=== PATIENT | male | born 1945 | race African-American/Black ===

== ENCOUNTER 2020-01-01 00:22 | Emergency (ER) | payer OTHER ==
[~2020-01-01] VITALS: Ht 185.4 cm; Wt 107.5 kg
[2020-01-01 01:09] LABS: HEMATOCRIT 40.6 % (42.0-52.0); HEMOGLOBIN 13.1 gm/dL (14.0-18.0); MCH 33.3 pg (26.0-34.0); MCHC 32.2 g/dL (28.0-37.0); MCV 103.3 fL (80.0-100.0); PLATELET COUNT 172 thou/uL (150-400); RBC 3.93 mil/uL (4.50-6.00); RDW 15.9 % (10.5-14.5); WBC 8.2 thou/uL (4.0-11.0)
[2020-01-01] MEDS ORDERED: PROSCAR 5MG TABL5 M1 PO (01:10)
[2020-01-01] MEDS ORDERED: TORSEMIDE20 MG PO ×2 (01:10→01:17)
[2020-01-01] MEDS ORDERED: ALLOPURINOL 10100 M3 PO (01:11)
[2020-01-01] MEDS ORDERED: B-12500 MCG PO (01:11)
[2020-01-01] MEDS ORDERED: PROTONIX40 M2 PO (01:12)
[2020-01-01] MEDS ORDERED: ASPIRIN PO (01:12)
[2020-01-01] MEDS ORDERED: KLOR-CON M2020 MEQ PO (01:12)
[2020-01-01] MEDS ORDERED: NEURONTIN 300M300 M2 PO (01:13)
[2020-01-01] MEDS ORDERED: TYLENOL PO (01:13)
[2020-01-01] MEDS ORDERED: CARVEDILOL ER20 MG PO (01:14)
[2020-01-01] MEDS ORDERED: RISPERDAL0.5 MG PO (01:14)
[2020-01-01] MEDS ORDERED: LIPITOR40 MG PO (01:15)
[2020-01-01] MEDS ORDERED: NIACIN 500 MG500 M1 PO (01:15)
[2020-01-01 01:16] LABS: ANION GAP 8 mmol/L (7-16); BUN 38 mg/dL (7-18); CALCIUM 8.5 mg/dL (8.5-10.1); CHLORIDE 105 mmol/L (98-107); CO2 26 mmol/L (21-32); CREATININE 1.8 mg/dL (0.7-1.3); GLUCOSE 93 mg/dL (74-106); POTASSIUM 5.9 mmol/L (3.5-5.1); SODIUM 139 mmol/L (136-145)
[2020-01-01] MEDS ORDERED: VITAMIN E1000 UNIT PO (01:16)
[2020-01-01] MEDS ORDERED: ATIVAN0.5 M1 PO (01:17)
[2020-01-01 01:26] LABS: ALBUMIN 3.2 g/dL (3.4-5.0); DIRECT BILIRUBIN 0.1 mg/dL (<0.1-0.2); SGOT 27 U/L (15-37); SGPT 21 U/L (30-65); TOTAL BILIRUBIN 0.3 mg/dL (<0.1-1.0); TOTAL PROTEIN 7.4 g/dL (6.4-8.2); TROPONIN-I <0.06 ng/mL (<0.06)
[2020-01-01 01:38] LABS: ANISOCYTOSIS 1+; MACROCYTES 1+; PLATELET ESTIMATE NORMAL; POIKILOCYTOSIS 1+
[2020-01-01 05:54] VITALS: BP 106/48
--- NOTE | 2020-01-01 08:24 | EKG ---
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: 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 : 1945 Requested By: Tracie Buatista Order Number: [id number] MD: Jesus Law Measurements Intervals [place] Rate: 70 P: 40 MD: 174 QRS: -57 QRSD: 114 T: 83 QT: 437 QTc: 472 Interpretive Statements Sinus rhythm Left atrial enlargement Left anterior fascicular block Poor R wave progression No previous ECG available for comparison Electronically Signed On 01-01-2020 8:22:20 CDT by Jesus Law [email or web address] <ELECTRONICALLY SIGNED> By: Jesus Law MD, [facility] 01/01/20 0822 0028 Jesus Law MD, [facility] /EPI
== END 2020-01-01 05:55 | disposition home or self-care (01) ==
LOC: ER 00:22
PROVIDERS: Emergency Medicine
DX: R07.9 Chest pain, unspecified (principal); R06.02 Shortness of breath; Z79.899 Other long term (current) drug therapy

== ENCOUNTER 2020-01-14 19:36 | Inpatient (IN) | payer OTHER ==
[~2020-01-14] VITALS: Ht 185.4 cm; Wt 107.6 kg
[2020-01-14 19:36] VITALS: BP 152/57
[~2020-01-14 19:36] MED LIST: ALLOPURINOL 10100 M3 PO; ASPIRIN PO; ATIVAN0.5 M1 PO; B-12500 MCG PO; CARVEDILOL ER20 MG PO; KLOR-CON M2020 MEQ PO; LIPITOR40 MG PO; NEURONTIN 300M300 M2 PO; NIACIN 500 MG500 M1 PO; PROSCAR 5MG TABL5 M1 PO; PROTONIX40 M2 PO; RISPERDAL0.5 MG PO; TORSEMIDE20 MG PO; TYLENOL PO; VITAMIN E1000 UNIT PO
--- NOTE | 2020-01-14 19:43 | NUR ---
SISTER IS RHEA GOMEZ
[2020-01-14 20:23] LABS: HEMOGLOBIN 12.1 gm/dL (14.0-18.0)
[2020-01-14 20:24] LABS: MCH 33.2 pg (26.0-34.0); MCHC 32.6 g/dL (28.0-37.0); MCV 101.8 fL (80.0-100.0); PLATELET COUNT 196 thou/uL (150-400); RBC 3.64 mil/uL (4.50-6.00); WBC 8.3 thou/uL (4.0-11.0)
[2020-01-14 20:33] LABS: ANION GAP 3 mmol/L (7-16); BUN 50 mg/dL (7-18); CALCIUM 8.5 mg/dL (8.5-10.1); CHLORIDE 103 mmol/L (98-107); CO2 27 mmol/L (21-32); GLUCOSE 103 mg/dL (74-106); SODIUM 133 mmol/L (136-145)
[2020-01-14 20:44] LABS: TROPONIN-I <0.06 ng/mL (<0.06)
[2020-01-14 20:59] LABS: ABSOLUTE NEUTROPHILS 5.4 thou/uL (1.4-8.2)
[2020-01-14 21:00] LABS: ANISOCYTOSIS 1+; MACROCYTES 1+
--- NOTE | 2020-01-14 21:37 | NUR ---
SPOKE WITH SISTER, GAVE UPDATE, SISTER CONCERNED ABOUT DVT.
[2020-01-14 22:04] VITALS: BP 140/49
--- NOTE | 2020-01-14 22:09 | NUR ---
THIS NURSE UPDATED SISTER RHEA AND GAVE HER THE ROOM # AND PHONE NUMBER FOR THE NURSES STATION
--- NOTE | 2020-01-14 22:13 | NUR ---
SPOKE WITH MARSHALL IN REGISTRATION ABOUT GETTING DPOA PAPERWORK FROM SISTER AND REGISTRATION TOLD THIS NURSE "NO I DON'T HAVE A WAY OF GETTING IT." AND DID NOT WANT THE DPOA'S CONTACT INFORMATION.
--- NOTE | 2020-01-14 22:24 | NUR ---
MESSAGE LEFT WITH SISTER PROVIDING FAX NUMBER FOR DPOA PAPERWORK
[2020-01-14 22:40] LABS: CHOLESTEROL 112 mg/dL (<200); HDL CHOLESTEROL 47 mg/dL (>40); LDL CHOLESTEROL 58 mg/dL (<100); TC:HDL 2.4 Ratio (Not establshd); TRIGLYCERIDE 35 mg/dL (<150); VLDL 7 mg/dL (<40)
[2020-01-14 22:42] LABS: SERUM ASSESSMENT Slight Lipemia
[2020-01-14 22:47] VITALS: BP 148/40
--- NOTE | 2020-01-15 02:07 | NUR ---
PT ARRIVED ON THE FLOOR AROUND 2240 VIA A WHEELCHAIR, PT IS AWAKE, A&OX3, SR/SB ON THE MONITOR, PT IS SITTING COMFORTABLE ASKING FOR ORANGE JUICE, STATED CHEST PAIN WAS 10 UPON ASSESSMENT, HAMMER FITTER NOTIFIED, MORPHINE GIVEN ORDERED, ADMISSION ASSESSMENTS CHARTED, DENIES COUGH, VSS ON ROOM AIR, NS STARTED ORDERED, STESDY ON THE FEET, RESTING IN BED, NO DISTRESS NOTED, WILL CONTINUE TO MONITOR
[2020-01-15 04:01] VITALS: BP 155/49
[2020-01-15 04:12] VITALS: BP 155/49
--- NOTE | 2020-01-15 04:46 | NUR ---
PT APPEARS TO BE IN NO DISTRESS, STILL REPORTS CP AT A 10, O2 AT 2 L NC STARTED, ASSESSMENTS CHARTED, SR/BBB ON THE MONITOR, VSS, WILL CONTINUE TO MONITOR
[2020-01-15 07:20] VITALS: BP 141/38
[2020-01-15 08:30] VITALS: BP 147/55
--- NOTE | 2020-01-15 09:00 | EKG ---
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: : 1945 Requested By: Tracie Bautista Order Number: [id number] MD: Jesus Law Measurements Intervals [place] Rate: 77 P: 46 TN: 185 QRS: -52 QRSD: 128 T: 70 QT: 405 QTc: 459 Interpretive Statements Sinus rhythm Atrial premature complexes Right ventricular conduction delay LAFB Compared to ECG 01/01/2020 00:28:38 Atrial premature complex(es) now present Electronically Signed On 01-15-2020 8:58:17 CDT by Jesus Law [email or web address] <ELECTRONICALLY SIGNED> By: Jesus Law MD, [facility] 01/15/20 [phone] 35 Jesus Law MD, [facility] /EPI
[2020-01-15 09:12] LABS: CALCIUM 8.8 mg/dL (8.5-10.1); CREATININE 1.7 mg/dL (0.7-1.3); POTASSIUM 5.5 mmol/L (3.5-5.1)
--- NOTE | 2020-01-15 12:59 | 2DMMODE ---
[facility] [address] [place] [address] 2 D/M-MODE ECHOCARDIOGRAM Name: ROMAN BROWN Room #: 208-P ADM IN M.R.#: [id number] Admission: 01/14/20 Attend Phys: Samuel Owens MD Discharge: Date of : 45 Report #: [id number] THIS REPORT FOR: cc: FAM - No family physician/PCP FAM - No family physician/PCP Ron Strauss MD ~ APPROVED REPORT Study performed: 01/15/2020 11:54:35 EXAM: Comprehensive 2D, Doppler, and color-flow Echocardiogram Patient Location: Bedside Room #: 208 Status: routine BSA: 2.32 HR: 63 bpm BP: 147/55 mmHg Rhythm: NSR Other Information Study Quality: Good/limited patient cooperation Indications Chest pain, Short of breath. Hx: Valve disease, HTN, HLP. 2D Dimensions RVDd: 48.31 mm IVSd: 15.33 (7-11mm) LVOT Diam: 26.36 (18-24mm) LVDd: 58.90 mm PWd: 15.36 (7-11mm) Ascending Ao: 35.27 (22-36mm) LVDs: 40.19 (25-40mm) Aortic Root: 44.38 mm Volumes Left Atrial Volume (Systole) Single Plane 4CH: 164.96 mL Single Plane 2CH: 141.61 mL LA ESV Index: 69.00 mL/m2 Aortic Valve AoV Peak Rudy.: 1.68 m/s AO Peak Gr.: 11.29 mmHg LVOT Max P.99 mmHg LVOT Max V: 1.41 m/s JELENA Vmax: 4.59 cm2 [facility] [address] [place] [address] 2 D/M-MODE ECHOCARDIOGRAM Name: ROMAN BROWN Room #: 208-P [facility] IN [facility].#: [id number] Admission: 01/14/20 Attend Phys: Samuel Owens MD Discharge: Date of : 45 Report #: [id number] Mitral Valve E/A Ratio: 1.7 MV Decel. Time: 179.55 ms MV E Max Rudy.: 0.80 m/s MV A Rudy.: 0.48 m/s MV PHT: 52.07 ms IVRT: 73.82 ms Pulmonary Valve PV Peak Rudy.: 0.76 m/s PV Peak Gr.: 2.29 mmHg Tricuspid Valve TR Peak Rudy.: 3.56 m/s RAP Estimate: 5.00 mmHg TR Peak Gr.: 51.00 mmHg PA Pressure: 56.00 mmHg Left Ventricle Left ventricle is mildly dilated. There is normal LV segmental wall motion. Moderate concentric left ventricular hypertrophy. Left ventricular systolic function is normal. LVEF is 55-60%. Right Ventricle Right ventricle is mildly dilated. The right ventricular systolic function is normal. Atria Left atrium is severely dilated. Right atrium is moderately dilated. Aortic Valve The aortic valve is normal in structure. Leaflets are mildly thickened and calcified. Moderate to severe aortic regurgitation. Eccentric jet. Mitral Valve The mitral valve is normal in structure. Moderate to severe mitral regurgitation. Eccentric jet. No evidence of mitral valve stenosis. Tricuspid Valve The tricuspid valve is normal in structure. Moderate tricuspid regurgitation. Estimated PAP is 55-60mmHg. Pulmonic Valve The pulmonary valve is normal in structure. Moderate pulmonic [facility] [place] [address] 2 D/M-MODE ECHOCARDIOGRAM Name: ROMAN BROWN Room #: 208-P ADM IN M.R.#: [id number] Admission: 01/14/20 Attend Phys: Samuel Owens MD Discharge: Date of : 45 Report #: [id number] regurgitation. Great Vessels Aortic root is dilated at 4.4cm. The ascending aorta is normal in size. IVC is normal in size and collapses >50% with inspiration. Pericardium There is no pericardial effusion. <Conclusion> Left ventricle is mildly dilated. LVEF is 55-60%. Right ventricle is mildly dilated. Left atrium is severely dilated. Right atrium is moderately dilated. The aortic valve is normal in structure. Leaflets are mildly thickened and calcified. Moderate to severe aortic regurgitation. Eccentric jet. The mitral valve is normal in structure. Moderate to severe mitral regurgitation. Eccentric jet. The tricuspid valve is normal in structure. Moderate tricuspid regurgitation. Estimated PAP is 55-60mmHg. The pulmonary valve is normal in structure. Moderate pulmonic regurgitation. Aortic root is dilated at 4.4cm. There is no pericardial effusion. <ELECTRONICALLY SIGNED> By: Ron Strauss MD 01/15/20 1257 1257 1257 Ron Strauss MD /INF
[2020-01-15 16:30] VITALS: BP 138/45
--- NOTE | 2020-01-15 18:05 | NUR ---
ASSUMED CARE AT SHIFT CHANGE, ALERT AND ORIENTED X4, AND VSS. ASSESSMENT CHARTED. PATIENT C/O CP 05/29, WHEN THE NURSE ASKS HIM, AND NO DISTRESS NOTED HR WITHIN 68-90/MIN. AND WILL CONTINUE WITH POC.
--- NOTE | 2020-01-15 18:33 | NUR ---
Case opened to follow for dc planning. [employer] spoke with the pt's sister/ramana Corbett as care team reports pt is poor historian. Pt's sister reports that he has been living with her since November this year as he was no longer able to live on his own. She manages his medication as he has problems with his memory. He is indep with gait and and most adl's but needs some supervision. He has been staying on his own while she is at work. They do have other family members in and out of the home during this time. She has noticed he seems unsteady at times. No recent falls. She works at [employer] and is hoping he can go to SNF rehab there before returning home. He does not have a pcp and she had an appt schedule with [facility] for next week;however they canceled it today and suggested he utlize their walkin clinic. She does not feel comfortable taking him there during the Covid crisis and prefers an office where she can get an appt. [facility] number provided. She will call them in the am. Referral to [facility] faxed however his OT eval is pending. Pt will likely be dc ready soon. DC plan is SNF if accepted and bed available or home with HH pending pcp appt with [facility]. Will follow.
[2020-01-15 19:53] VITALS: BP 150/40
[2020-01-16] VITALS (8 sets, daily range): BP systolic 142–173; BP diastolic 40–82
[2020-01-16 00:07] LABS: GLYCOHEMOGLOBIN (HGB A1C) 5.5 % (4.8-5.6)
--- NOTE | 2020-01-16 04:29 | NUR ---
ASSUMED PT CARE AT 1900, PT IS AWAKE, A&OX4, SR/PACS ON THE MONITOR, VSS, PATIENT RATED CP 10/10 AT THE BEGINIING OF SHIFT, NO DISTRESS NOTED, ASK PT TO CALL IF PAIN GETS WORSE, NO CALL MADE BY PT, THIS MORNING PT IS LAYING IN BED, DENIES CHEST PAIN OR SOB, ASSESSMENTS CHARTED, NO DISTRESS NOTED, WILL CONTINUE TO MONITOR
--- NOTE | 2020-01-16 10:09 | NUR ---
F/U WITH ALMA ROSA IN ADM AT [facility] HE RECEIVED REFERRAL AND WILL REVIEW. DP TO FOLLOW.
[2020-01-16 12:20] LABS: CALCIUM 8.8 mg/dL (8.5-10.1); CREATININE 1.5 mg/dL (0.7-1.3); POTASSIUM 5.1 mmol/L (3.5-5.1)
--- NOTE | 2020-01-16 16:04 | NUR ---
PT CARE ASSUMED AT 0700. ASSESSMENTS CHARTED. MEDICATION CHARTED. PT DENIES CP. PT RECIEVED HYDRALAZINE AT 1240 FOR SBP > 170. ORIENTED TO PERSON, PLACE AND SITUATION.
--- NOTE | 2020-01-16 17:02 | NUR ---
STILL WAITING FOR RESPONSE FROM ADMISSIONS AT [facility] FOR DC TODAY OR TOMORROW TO SNF VS HOME WITH HIS SISTER. SISTER UPDATED. CARE TEAM UPDATED.
[2020-01-17 00:05] VITALS: BP 184/67
--- NOTE | 2020-01-17 03:45 | NUR ---
ASSESSMENTS CHARTED, MEDS GIVEN CHARTED. PATIENT RESTING IN ROOM DURING SHIFT. UP AT [place]RELL IN ROOM. ON ROOM AIR. ASSESSMENTS PERFORMED, DENIED PAIN. FALL PRECAUTIONS IN PLACE DURING SHIFT. PLAN OF CARE IS TO TRANSFER TO SNF IN AM IF IT CAN BE ARRANGED.
[2020-01-17 04:24] VITALS: BP 131/34
[2020-01-17 07:30] VITALS: BP 163/53
[2020-01-17 08:45] VITALS: BP 163/53
[2020-01-17] MEDS ORDERED: ASPIR 8181 M1 PO (11:51)
[2020-01-17] MEDS ORDERED: ACETAMINOPHEN325 M1 PO (11:51)
[2020-01-17] MEDS ORDERED: MIRALAX17 GM PO (11:51)
[2020-01-17] MEDS ORDERED: IPRAT-ALBUT 0.5-3 ML INH (11:51)
--- NOTE | 2020-01-17 13:31 | NUR ---
ASSESSMENT CHARTED. PT ALERT AND ORIENTED WITH FORGETFULNESS. DENIED HAVING PAIN OR DISCOMFORT. ORDERS GIVEN TO DISCHARGE PT TO [facility].
== END 2020-01-17 13:26 | DRG 196 ==
LOC: ER 19:36 → 2N 21:49 → EROBS 21:49 → 2N 22:24
PROVIDERS: Emergency Medicine; Nurse Practitioner; Nurse Practitioner Family; ADMIT Internal Medicine; ATTEND Internal Medicine
DX: J84.10 Pulmonary fibrosis, unspecified (principal); N17.0 Acute kidney failure with tubular necrosis; J96.21 Acute and chronic respiratory failure with hypoxia; I24.8 Other forms of acute ischemic heart disease; J84.9 Interstitial pulmonary disease, unspecified; E78.5 Hyperlipidemia, unspecified; K21.9 Gastro-esophageal reflux disease without esophagitis; G62.9 Polyneuropathy, unspecified; F03.90 Unspecified dementia, unspecified severity, without behavioral disturbance, psychotic disturbance, mood disturbance, and anxiety; E53.8 Deficiency of other specified B group vitamins; N40.0 Benign prostatic hyperplasia without lower urinary tract symptoms; E87.5 Hyperkalemia; M25.562 Pain in left knee; M25.561 Pain in right knee; E78.00 Pure hypercholesterolemia, unspecified; I13.10 Hypertensive heart and chronic kidney disease without heart failure, with stage 1 through stage 4 chronic kidney disease, or unspecified chronic kidney disease; N18.9 Chronic kidney disease, unspecified; G47.00 Insomnia, unspecified; I34.0 Nonrheumatic mitral (valve) insufficiency; Z66 Do not resuscitate; R07.9 Chest pain, unspecified; M10.9 Gout, unspecified; I07.1 Rheumatic tricuspid insufficiency; I27.20 Pulmonary hypertension, unspecified; Z79.82 Long term (current) use of aspirin; Z82.49 Family history of ischemic heart disease and other diseases of the circulatory system; Z79.899 Other long term (current) drug therapy
CPT/HCPCS: 10081

== ENCOUNTER 2020-04-08 18:37 | Inpatient (IN) | payer OTHER ==
[~2020-04-08] VITALS: Ht 185.4 cm; Wt 110.7 kg
[~2020-04-08 18:37] MED LIST changes: +ACETAMINOPHEN325 M1 PO; +ASPIR 8181 M1 PO; +IPRAT-ALBUT 0.5-3 ML INH; +MIRALAX17 GM PO
[2020-04-08 19:51] LABS: HEMATOCRIT 37.2 % (42.0-52.0); HEMOGLOBIN 12.1 gm/dL (14.0-18.0); MCH 32.8 pg (26.0-34.0); MCHC 32.4 g/dL (28.0-37.0); PLATELET COUNT 219 thou/uL (150-400); RBC 3.69 mil/uL (4.50-6.00); RDW 16.5 % (10.5-14.5); WBC 11.8 thou/uL (4.0-11.0)
[2020-04-08 20:20] LABS: ABSOLUTE NEUTROPHILS 10.3 thou/uL (1.4-8.2)
[2020-04-08 20:21] LABS: ANISOCYTOSIS 1+; BURR CELLS FEW; MACROCYTES 1+
[2020-04-08 20:52] LABS: ALBUMIN 3.1 g/dL (3.4-5.0); CALCIUM 8.9 mg/dL (8.5-10.1); CREATININE 4.7 mg/dL (0.7-1.3); MAGNESIUM 1.9 mg/dL (1.8-2.4); TOTAL BILIRUBIN 0.5 mg/dL (0.2-1.0); TOTAL PROTEIN 7.4 g/dL (6.4-8.2); TROPONIN-I 0.06 ng/mL (<0.06)
[2020-04-08 20:58] LABS: POTASSIUM 7.1 mmol/L (3.5-5.1)
[2020-04-08 21:12] LABS: APTT 25.2 Seconds (24.5-32.8); INR 1.2; PROTIME 12.1 Seconds (9.3-11.4)
[2020-04-08 22:43] VITALS: BP 180/52
--- NOTE | 2020-04-08 22:45 | NUR ---
FIRST ATTEMPT AT REPORT CALLED. NURSE STATES THEY DONT KNOW WHO IS GETTING 208 AND THAT THEY WILL FIGURE IT OUT AND CALL BACK.
[2020-04-08 23:45] VITALS: BP 179/64
[2020-04-09 00:16] VITALS: BP 174/27
--- NOTE | 2020-04-09 03:51 | NUR ---
ARRIVED ON UNIT AT 2350 FROM ED WITH ELEVATED POTASSIUM, NON-HEALING WOUNDS, ELEVATED BUN AND CREATININE. PATIENT CAME FROM [facility]. ALERT X 3. SR/ST ON TELEMETRY. +2 EDEMA BILATERAL LOWER EXTREMITIES, OPEN WOUNDS. ON ROOM AIR. C/O PAIN 10/10 IN LOWER LEGS, FENTANYL GIVEN WITH LITTLE RELIEF. FALL PRECAUTIONS IN PLACE DURING SHIFT.
[2020-04-09 04:12] LABS: HEMATOCRIT 36.6 % (42.0-52.0); HEMOGLOBIN 12.2 gm/dL (14.0-18.0); MCH 33.3 pg (26.0-34.0); MCHC 33.3 g/dL (28.0-37.0); RBC 3.65 mil/uL (4.50-6.00); RDW 16.2 % (10.5-14.5)
[2020-04-09 04:41] VITALS: BP 146/50
[2020-04-09 04:48] LABS: TOTAL BILIRUBIN 0.5 mg/dL (0.2-1.0)
[2020-04-09 04:49] LABS: POTASSIUM 5.8 mmol/L (3.5-5.1)
[2020-04-09 04:50] LABS: CREATININE 3.7 mg/dL (0.7-1.3)
[2020-04-09 08:38] LABS: HEMATOCRIT 37.7 % (42.0-52.0); HEMOGLOBIN 11.9 gm/dL (14.0-18.0); MCH 32.3 pg (26.0-34.0); MCHC 31.7 g/dL (28.0-37.0); RBC 3.69 mil/uL (4.50-6.00); RDW 16.7 % (10.5-14.5); WBC 11.8 thou/uL (4.0-11.0)
--- NOTE | 2020-04-09 08:43 | EKG ---
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: [facility]aud[facility] : 1945 Requested By: Tariq Paniagua Order Number: [id number] MD: Jesus Law Measurements Intervals [place] Rate: 72 P: -5 MS: 195 QRS: -37 QRSD: 117 T: 87 QT: 443 QTc: 485 Interpretive Statements Sinus rhythm Atrial premature complex Incomplete RBBB and LAFB Compared to ECG 01/14/2020 19:36:31 No significant change was found Electronically Signed On 04-09-2020 8:43:39 CDT by Jesus Law [email or web address] <ELECTRONICALLY SIGNED> By: Jesus Law MD, [facility] 04/09/20 0843 190 01 Jesus Law MD, [facility] /EPI
[2020-04-09 09:16] LABS: CALCIUM 9.2 mg/dL (8.5-10.1); CREATININE 3.4 mg/dL (0.7-1.3); MAGNESIUM 1.8 mg/dL (1.8-2.4); POTASSIUM 5.9 mmol/L (3.5-5.1)
[2020-04-09 09:17] VITALS: BP 174/39
[2020-04-09 11:24] VITALS: BP 171/44
--- NOTE | 2020-04-09 13:50 | NUR ---
Case opened to follow for dc planning. Pt admitted from [facility]. His sister Chelle is his dpoa and she works at [facility] [employer] [employer]. She notes recent decrease in mobility d/t leg ulcers and edema. She as made arrangements with Nubia the admin at [facility], for the pt to go to their SNF upon his return. PT/OT are evaluating the pt. Pt is being treated for hypercalemia and cellulitis. Renal and wound care are consulting. Pt will need Covid test prior to dc. This facility has not had any cases today and therefore he has not been tested prior to admission here. [facility] will have a bed in the SNF on Sunday if the pt is ready and covid neg test completed. The plan would be a short snf stay then transition to their ltc vs back to the usp. Nuzaida updated and they will swab the pt for covid test. Pt will likely be ready for dc Sunday to SNF. Clincial updated faxed to Nubia at [facility].
[2020-04-09 17:16] VITALS: BP 142/46
[2020-04-09 18:37] LABS: URINE BILIRUBIN NEGATIVE (Negative); URINE BLOOD NEGATIVE (Negative); URINE CLARITY CLEAR; URINE COLOR YELLOW; URINE GLUCOSE-RANDOM* NEGATIVE (Negative); URINE KETONES NEGATIVE (Negative); URINE LEUKOCYTES 1+ (Negative); URINE NITRITE NEGATIVE (Negative); URINE PROTEIN (DIPSTICK) NEGATIVE (Negative); URINE SPECIFIC GRAVITY 1.015 (1.005-1.035); URINE UROBILINOGEN 0.2 E.U./dl (0.2-1.0)
[2020-04-09 18:46] LABS: SQUAMOUS 4-10 Moderate /LPF (0-3)
[2020-04-09 18:47] LABS: URINE RBC None Seen /HPF (0-2)
[2020-04-09 18:48] LABS: CASTS None Seen /LPF (None Seen); CRYSTALS None Seen /LPF (None Seen)
--- NOTE | 2020-04-09 19:05 | NUR ---
ASSESSMENT CHARTED - PT CONFUSED/ FORGETFUL - HAS PULLED OUT 2 IV'S THIS SHIFT - IV FLUID ORDERED NOT ABLE TO BE GIVEN SO FAR DUE TO PATIENT REMOVING IV. IV THERAPY HERE TO INSERT ANOTHER AT THE PRESENT TIME. SEEN BY WOUND CARE - ORDERES NOTED - DRESSINGS TO LEGS BILAT COMPLETED AND HEEL PROTECTORS PLACED ORDERED. UA TO LAB ALONG WITH COVID TEST ORDERED. PT DOES NOT FOLLOPW INSTRUCTIONS WELL - WILL GET OUT OF BED TO USE BATHROOM WITHOUT CALLING, INSTRUCTED PT HE WOULD FALL IF HE GOT OUT OF BED WITH HEEL PROTECTORS ON - REINFORCED THIS MULITPLE TIMES AND BED ALARM IS ON. MEDS PER OCT - GIVEN 1 DOSE OF PAIN MEDS THIS AM WITH GOOD RELIEF - NO FURTHER REUQESTS FOR PAIN MED. [facility] - PT STATES HE DOES NOT LIKE THE FOOD HERE AND IS EATING APPROX 50% OF MEALS. NO CO'S AT THE PRESENT TIME.
[2020-04-09 20:29] VITALS: BP 139/44
--- NOTE | 2020-04-10 01:01 | NUR ---
ASSESSMENTS CHARTED. MEDS CHARTED GIVEN. PATIENT RESTING IN BED DURING SHIFT. PATIENT CHANGED TO LACTATED RINGERS TODAY. PATIENT HAD ONE 3 BEAT RUN OF VTACH ON TELEMETRY. EDEMA TO BILATERAL LOWER EXTREMITIES. PATIENT HAS HEAL PROTECTORS ON WHILE IN BED. BED ALARM ON DURING SHIFT. C/O PAIN 10/10 DURING SHIFT, BUT PAIN MEDS DO NOT HELP MUCH PER PATIENT. PLAN IS TO CONTINUE CORRECTING ELECTROLYTES.
[2020-04-10 05:25] VITALS: BP 144/46
[2020-04-10 05:44] LABS: ALBUMIN 2.7 g/dL (3.4-5.0); CALCIUM 9.1 mg/dL (8.5-10.1); PHOSPHORUS 2.7 mg/dL (2.5-4.9); POTASSIUM 5.2 mmol/L (3.5-5.1)
[2020-04-10 06:15] LABS: CREATININE 2.2 mg/dL (0.7-1.3)
[2020-04-10 08:04] VITALS: BP 153/60
[2020-04-10 11:07] VITALS: BP 161/51
[2020-04-10 15:05] VITALS: BP 154/47
--- NOTE | 2020-04-10 17:05 | NUR ---
ASSESSMENT CHARTED. PT ALERT WITH FORGETFULNESS. WOUND CARE PROVIDED. VSS. NO CONCERNS AT THIS TIME. PROGRESSING WELL TOWARDS DISCHARGE GOAL. WILL CONTINUE TO MONITOR.
[2020-04-10 19:30] VITALS: BP 148/39
--- NOTE | 2020-04-10 23:59 | NUR ---
ASSESSMENTS CHARTED, MEDS CHARTED GIVEN. PATIENT SLEEPING IN BED DURING MOST OF THE SHIFT. EASILY ARROUSABLE. ALERT AND ORIENTED, SINUS ARRHYTHMIA ON TELEMETRY. LUNGS CLEAR ON ROOM AIR. +2 EDEMA BILATERAL ANKLES, +3 EDEMA BILATERAL FEET. WOUNDS ARE DRESSED ON BOTH LEGS. PATIENT MOVES HIMSELF IN BED SIDE TO SIDE. C/O PAIN 5/10 WHICH HE SAYS IS NOT BAD. SPOKE WITH SISTER ON THE PHONE AND GAVE UPDATE. PLAN OF CARE IS TO KEEP WORKING ON ELECTROLYTES AND FLUID LOAD. MAINTENANCE FLUID WAS DC'D DURING DAY.
[2020-04-11 04:20] VITALS: BP 138/29
[2020-04-11 05:59] LABS: HEMATOCRIT 36.3 % (42.0-52.0); HEMOGLOBIN 12.1 gm/dL (14.0-18.0); MCH 33.1 pg (26.0-34.0); MCHC 33.3 g/dL (28.0-37.0); MCV 99.3 fL (80.0-100.0); PLATELET COUNT 193 thou/uL (150-400); RBC 3.66 mil/uL (4.50-6.00); RDW 16.4 % (10.5-14.5); WBC 9.5 thou/uL (4.0-11.0)
[2020-04-11 06:23] LABS: ALBUMIN 2.7 g/dL (3.4-5.0); CALCIUM 9.1 mg/dL (8.5-10.1); CREATININE 1.6 mg/dL (0.7-1.3); MAGNESIUM 1.4 mg/dL (1.8-2.4); PHOSPHORUS 1.8 mg/dL (2.5-4.9); POTASSIUM 4.9 mmol/L (3.5-5.1); TOTAL BILIRUBIN 0.6 mg/dL (0.2-1.0); TOTAL PROTEIN 6.6 g/dL (6.4-8.2)
[2020-04-11 07:53] VITALS: BP 145/30
[2020-04-11 10:53] LABS: ABSOLUTE NEUTROPHILS 6.9 thou/uL (1.4-8.2); BURR CELLS 2+; METAMYELOCYTES 1 %; MYELOCYTES 2 %
[2020-04-11 10:54] LABS: ANISOCYTOSIS 1+; SCHISTOCYTES FEW
[2020-04-11 12:04] VITALS: BP 143/55
[2020-04-11 13:20] LABS: TSH 1.529 uIU/mL (0.358-3.740)
[2020-04-11 15:40] VITALS: BP 143/52
--- NOTE | 2020-04-11 16:31 | NUR ---
ASSESSMENT CHARTED. PT ALERT AND ORIENTED. VSS. IV ABX GIVEN ORDERED. WOUND CARE PROVIDED. NEW ORDERS NOTED. NO CARDIAC OR RESPIRATORY DISTRESS NOTED. FALL PRECAUTION IN PLACE. CHECKED FREQUENTLY AND NEEDS MET. WILL CONTINUE TO MONITOR.
[2020-04-11 20:17] VITALS: BP 140/57
--- NOTE | 2020-04-12 00:28 | NUR ---
ASSESSMENTS CHARTED, MEDS CHARTED GIVEN. PATIENT RESTING IN ROOM DURING SHIFT. GETTING ABX IV. PATIENT UPGRADED TO MED/SURG. PATIENT REPORT WAS CALLED TO [facility] ON [address]. PATIENT WAS TRANSFERED TO ROOM 434 AT 0015. FALL PRECAUTIONS WERE IN PLACE DURING SHIFT.
--- NOTE | 2020-04-12 02:39 | NUR ---
ASSUMED PT CARE AT 0130.PT WAS OBSERVED SITTING UP IN THE RECLINER WITH THE BLANKET COVERING HIS FACE.CHAIR ALARM IN PLACE.PT WAS REMINDED TO USE THE CALL LIGHT FOR ASSISTANCE.WILL CONT TO MONITOR.
[2020-04-12 06:54] LABS: ALBUMIN 2.6 g/dL (3.4-5.0); CALCIUM 8.7 mg/dL (8.5-10.1); CREATININE 1.5 mg/dL (0.7-1.3); PHOSPHORUS 2.1 mg/dL (2.5-4.9); POTASSIUM 4.6 mmol/L (3.5-5.1)
[2020-04-12 08:15] VITALS: BP 132/42
[2020-04-12] MEDS ORDERED: CARVEDILOL3.125 MG PO (11:39)
[2020-04-12] MEDS ORDERED: SODIUM BICARBO650 M3 PO (11:40)
[2020-04-12] MEDS ORDERED: VELTASSA8.4 GM PO (11:40)
[2020-04-12] MEDS ORDERED: SSD CREAM 1% 5050 GM TOP (11:41)
[2020-04-12] MEDS ORDERED: KEFLEX500 M1 PO (11:50)
--- NOTE | 2020-04-12 12:26 | NUR ---
ON-GOING ASSESSMENT: CM REVIEWED CHART AND SPOKE WITH ATTENDING. PT IS STABLE TO DISCHARGE IF FACILITY WILL ACCEPT. ЕЛЕНА CONTACTED CARLEY IN ADMISSIONS AT [facility] PLAN IS FOR PATIENT TO GO TO SNF THERE. SHE STATES THEY CAN ACCEPT THE PATIENT TODAY. ЕЛЕНА FAXED FIRST NEGATIVE COVID TEST TO [facility]. TEST THAT WAS COMPLETED ON 04/11 IS STILL PENDING BUT CARLEY STATES THEY ARE OK TAKING THE PATIENT BACK TODAY WITH THE FIRST NEGATIVE AND JUST FAX THE RESULTS OF THE SECOND TEST WHEN IT IS BACK. ЕЛЕНА NOTIFIED ATTENDING. CHART COPY WAS ORDERED AND INSIDE TESTER NOTIFIED. CM FAXED DISCHARGE PAPERWORK TO [facility] AND CONFIRMED THEY RECEIVED IT. ЕЛЕНА SPOKE WITH CARLEY IN ADMISSIONS [phone] WHO REPORTS SHE WILL CHECK WITH THEIR ELASTIC TAPE INSERTER IF THEY CAN PROVIDE TRANSPORTATION IF NOT SHE WAS GOING TO ASK PATIENTS DAUGHTER RHEA SHE WORKS AT THE FACILITY. CM AWAITING RESPONSE. ЕЛЕНА SPOKE WITH RHEA EARLIER AND SHE IS AGREEABLE WITH DISCHARGE TO [facility] TODAY. ЕЛЕНА NOTIFIED BEDSIDE RN OF THE NUMBER FOR REPORT.
--- NOTE | 2020-04-12 17:49 | NUR ---
Assumed care of pt. 0700. Pt. is calm and cooperative. Pt. still complains of pain in legs. Medications were given for pain. Pt. was discharged with all belongings and left with transport to skilled facility. Discharge orders and chart copy given to transport.
--- NOTE | 2020-04-13 08:52 | HC ---
[facility] [place] [place] [address] CONSULTATION Name: ROMAN BROWN Room #: 434-P [facility] IN M.R.#: [id number] Admission: 04/08/20 Attend Phys: Denys Diaz MD Discharge: 04/12/20 Date of : 45 Report #: [id number] THIS REPORT FOR: cc: Luann Engle MD,Derrick Watson MD, MD ~ CC: Denys Engle DATE OF SERVICE: 04/09/2020 WOUND CARE CONSULTATION PERSONAL PHYSICIAN: Dr. Engle. CHIEF COMPLAINT: Leg wounds. HISTORY OF PRESENT ILLNESS: This is a 74-year-old black male who was admitted from his care facility for elevated BUN and creatinine as well as an elevated potassium. Upon admission, the patient was noted to have wounds on bilateral lower extremities, which he says has been present for the past several weeks. The patient himself is a fairly poor historian. It is unclear exactly how long these wounds have been present, but states they started off as blisters and then developed into chronic wounds. The patient states he has no actual pain. The patient denies any other associated wounds at this time. Nursing staff deny any other associated wounds. It was also felt the patient's wounds appear to be somewhat cellulitic. In the Emergency Department, the patient was started on IV antibiotics. PAST MEDICAL HISTORY: Significant for hyperlipidemia, dementia, hypertension, chronic kidney disease, peripheral neuropathy, venous insufficiency with edema. CURRENT MEDICATIONS: Multiple, I reviewed the patient's medication list. DRUG ALLERGIES: None. SOCIAL HISTORY: The patient resides in a long-term care facility. FAMILY HISTORY AND REVIEW OF SYSTEMS: Unobtainable because of the patient's dementia. PHYSICAL EXAMINATION: VITAL SIGNS: Temperature 37.1, pulse 81, respirations 18, BP 140/57. GENERAL: This is an alert and oriented x 1 person, but not place or time, elderly black male who is in no obvious distress. HEENT: Normocephalic, atraumatic. Mucous membranes are somewhat dry. Pupils [facility] [address] [place] [address] CONSULTATION Name: STEPHANIEROMAN Veronica Room #: 434-P [facility] IN M.R.#: [id number] Admission: 04/08/20 Attend Phys: Denys Diaz MD Discharge: 04/12/20 Date of : 45 Report #: [id number] are round. Sclerae white. NECK: Supple, nontender. LUNGS: Clear. HEART: Regular. ABDOMEN: Obese, soft, nontender. EXTREMITIES: The patient has 2-3+ edema bilateral lower extremities. Distal pulses are faint. There is increased erythema and warmth in bilateral lower extremities, right greater than left. There are multiple superficial ulcerations on bilateral lower extremities, right greater than left, all of which appeared once again be superficial without depth, they are mix of approximately 80% slough, 20% granulation tissue. No associated ulcerations noted on the foot or toes. NEUROLOGIC: Cranial nerves 2-12 grossly intact. Motor and sensory grossly intact. LABORATORY DATA: White count 11.8, hemoglobin 12.1, BUN 28, creatinine 1.5, albumin 2.6. IMPRESSION: 1. Bilateral lower extremity cellulitis, right greater than left. 2. Bilateral lower extremity venous stasis ulcers, overall superficial. 3. Hyperlipidemia. 4. Hypertension. 5. Moderate protein-calorie malnutrition with albumin of 3.0. 6. Peripheral arterial disease by exam. 7. Generalized debility. 8. Chronic kidney disease. PLAN: The patient is already started on IV antibiotics, which is appropriate. We will start the patient on morphine, Silvadene cream to the superficial ulcers. Given the mild pain associated with this we will cover this with Xeroform, ABD, Kerlix, but no Carlo wrap at this time. Arterial Dopplers have been ordered to evaluate for underlying arterial disease. We will make sure we maximize the patient's oral protein supplementation for healing. We will utilize physical and occupational therapy for strengthening. We will continue all other current medications. I appreciate ability to consult. <ELECTRONICALLY SIGNED> By: Derrick Rodriguez MD 04/13/20 0852 1228 [id number] Derrick Rodriguez MD /nt
== END 2020-04-12 15:22 | DRG 871 ==
LOC: ER 18:37 → EROBS 21:56 → 2N 21:56 → 4S 04-12 00:22
PROVIDERS: Internal Medicine; Internal Medicine Nephrology; Nurse Practitioner; Nurse Practitioner Family; ADMIT Hospitalist; ATTEND Hospitalist
DX: A41.9 Sepsis, unspecified organism (principal); G93.41 Metabolic encephalopathy; E43 Unspecified severe protein-calorie malnutrition; N17.9 Acute kidney failure, unspecified; I50.30 Unspecified diastolic (congestive) heart failure; I13.0 Hypertensive heart and chronic kidney disease with heart failure and stage 1 through stage 4 chronic kidney disease, or unspecified chronic kidney disease; L03.116 Cellulitis of left lower limb; L03.115 Cellulitis of right lower limb; I38 Endocarditis, valve unspecified; E87.5 Hyperkalemia; E78.5 Hyperlipidemia, unspecified; K21.9 Gastro-esophageal reflux disease without esophagitis; G62.9 Polyneuropathy, unspecified; M10.9 Gout, unspecified; F03.90 Unspecified dementia, unspecified severity, without behavioral disturbance, psychotic disturbance, mood disturbance, and anxiety; N40.0 Benign prostatic hyperplasia without lower urinary tract symptoms; M25.562 Pain in left knee; M25.561 Pain in right knee; I83.009 Varicose veins of unspecified lower extremity with ulcer of unspecified site; R60.0 Localized edema; I83.028 Varicose veins of left lower extremity with ulcer other part of lower leg; N18.3 Chronic kidney disease, stage 3 (moderate); I27.20 Pulmonary hypertension, unspecified; E53.8 Deficiency of other specified B group vitamins; Z79.82 Long term (current) use of aspirin; Z79.899 Other long term (current) drug therapy; Z68.32 Body mass index [BMI] 32.0-32.9, adult; Z82.49 Family history of ischemic heart disease and other diseases of the circulatory system; Z20.828 Contact with and (suspected) exposure to other viral communicable diseases
CPT/HCPCS: 10081

== ENCOUNTER 2020-07-04 13:01 | Inpatient (IN) | payer OTHER ==
[~2020-07-04] VITALS: Ht 182.9 cm; Wt 101.0 kg
[~2020-07-04 13:01] MED LIST changes: +CARVEDILOL3.125 MG PO; +KEFLEX500 M1 PO; +SODIUM BICARBO650 M3 PO; +SSD CREAM 1% 5050 GM TOP; +VELTASSA8.4 GM PO
[2020-07-04 13:02] VITALS: BP 168/57
[2020-07-04 13:48] LABS: HEMATOCRIT 40.2 % (42.0-52.0); HEMOGLOBIN 12.7 gm/dL (14.0-18.0); MCH 32.8 pg (26.0-34.0); MCHC 31.6 g/dL (28.0-37.0); MCV 103.8 fL (80.0-100.0); PLATELET COUNT 238 thou/uL (150-400); RBC 3.88 mil/uL (4.50-6.00); RDW 17.3 % (10.5-14.5); WBC 16.8 thou/uL (4.0-11.0)
--- NOTE | 2020-07-04 13:56 | NUR ---
THIS AIRBRUSH ARTIST CALLS AND SPEAKIS WITH NURSE CHRISTA AT [facility]. SHE STATES THAT THE PTS BLE WOUNDS ARE WOSE. REPORTS THAT 3-4 DAYS AGO PT BEGAN TAKIN 120 MG LASIX, LABS DRAWN YESTERDAY AND KINDNEY FUNCTION NOT WNL. THE NURSE STATES SHE BELIEVES THE PT TO HAVE LOST 20 LBS IN LAST 3 DAYS. REPORTS THAT THE LASIX HAS BEEN STOPPED AND PT HAS BEEN NOT "RIGHT" AND UNABLE TO STAND. NURSE REPORTS A NEGATIVE COVID-19 TEST ON Sunday06/30/20
[2020-07-04 14:14] LABS: URINE BILIRUBIN 1+ (Negative); URINE BLOOD NEGATIVE (Negative); URINE CLARITY CLEAR; URINE COLOR YELLOW; URINE GLUCOSE-RANDOM* NEGATIVE (Negative); URINE KETONES TRACE (Negative); URINE NITRITE-REFLEX NEGATIVE (Negative); URINE PROTEIN (DIPSTICK) 1+ (Negative); URINE SPECIFIC GRAVITY >= 1.030 (1.005-1.035)
[2020-07-04 14:19] LABS: URINE LEUKOCYTES-REFLEX 2+ (Negative)
[2020-07-04 14:21] LABS: ICTOTEST (BILI CONFIRMATORY) Positive (Negative)
[2020-07-04 14:25] LABS: ABSOLUTE NEUTROPHILS 14.6 thou/uL (1.4-8.2); ANISOCYTOSIS 1+; MACROCYTES 1+; POLYCHROMASIA OCCASIONAL
[2020-07-04 14:40] LABS: BACTERIA-REFLEX 1-9 Few /HPF (None Seen); CRYSTALS None Seen /LPF (None Seen); HYALINE CASTS 0-3 Few /LPF (None Seen); SQUAMOUS None Seen /LPF (0-3); URINE RBC None Seen /HPF (0-2)
[2020-07-04] MEDS ORDERED: SODIUM BICARBO650 M3 PO (14:43)
[2020-07-04 14:49] LABS: ANION GAP 13 mmol/L (7-16); BUN 55 mg/dL (7-18); CALCIUM 10.2 mg/dL (8.5-10.1); CHLORIDE 99 mmol/L (98-107); CO2 23 mmol/L (21-32); CREATININE 3.6 mg/dL (0.7-1.3); GLUCOSE 126 mg/dL (74-106); POTASSIUM 4.3 mmol/L (3.5-5.1); SODIUM 135 mmol/L (136-145)
[2020-07-04 14:54] LABS: SGOT 20 U/L (15-37); SGPT < 6 U/L (30-65); TOTAL BILIRUBIN 1.3 mg/dL (0.2-1.0); TOTAL PROTEIN 8.1 g/dL (6.4-8.2)
[2020-07-04 15:18] VITALS: BP 170/52
--- NOTE | 2020-07-04 17:33 | EKG ---
[facility] [place] [address] ELECTROCARDIOGRAM REPORT Name: ROMAN BROWN Room #: 170-10 ADM IN M.R.#: [id number] Admission: 07/04/20 Attend Phys: Samira Ott MD Discharge: Date of : 45 Report #: [id number] THIS REPORT FOR: cc: Luann Engle MD, Ramilo MD Santiago,Corey [facility] ~ THIS REPORT FOR: //name// [facility] ED Test Date: 2020-07-04 Test Time: 14:27:06 Pat Name: ROMAN BROWN Department: Room: 170 Gender: M Pyrometer Operator: kassie izaguirre : 1945 Requested By: Dennis Monique Order Number: [id number] MD: Corey Douglass Measurements Intervals [place] Rate: 106 P: 36 W[place]: 184 QRS: -38 QRSD: 123 T: 113 QT: 353 QTc: 469 Interpretive Statements SINUS ARRHYTHMIA Probable left atrial enlargement Nonspecific IVCD with LAD LVH with secondary repolarization abnormality Compared to ECG 04/08/2020 19:02:29 Ventricular premature complex(es) now present Left ventricular hypertrophy now present Right bundle-branch block no longer present Electronically Signed On 07-04-2020 17:32:58 RECRUITER SPECIALIST by Corey Douglass [email or web address] <ELECTRONICALLY SIGNED> By: Corey Douglass MD, FACC 07/04/20 1732 1427 1427 Corey Douglass MD, FAC /EPI
--- NOTE | 2020-07-04 20:10 | NUR ---
ROSA GOODWIN FROM [facility] FOR AN UPDATE
[2020-07-04 20:42] VITALS: BP 160/43
--- NOTE | 2020-07-04 21:16 | NUR ---
TRIED TO CALL REPORT NURSE UNAVAILABLE.
[2020-07-04 23:07] VITALS: BP 144/52
[2020-07-05 06:18] LABS: ABSOLUTE NEUTROPHILS 13.9 thou/uL (1.4-8.2); BASOPHILS 0.3 % (0.0-2.0); EOSINOPHILS 0.5 % (0.0-3.0); HEMATOCRIT 36.4 % (42.0-52.0); HEMOGLOBIN 11.5 gm/dL (14.0-18.0); LYMPHOCYTES 3.9 % (24.0-44.0); MCH 32.5 pg (26.0-34.0); MCHC 31.5 g/dL (28.0-37.0); MCV 103.5 fL (80.0-100.0); MONOCYTES 10.6 % (1.0-8.0); PLATELET COUNT 213 thou/uL (150-400); POLYS 84.7 % (36.0-66.0); RBC 3.52 mil/uL (4.50-6.00); RDW 15.5 % (10.5-14.5); WBC 16.4 thou/uL (4.0-11.0)
[2020-07-05 06:38] LABS: CALCIUM 9.3 mg/dL (8.5-10.1); MAGNESIUM 1.9 mg/dL (1.8-2.4); PHOSPHORUS 3.2 mg/dL (2.5-4.9)
[2020-07-05 06:39] LABS: CREATININE 2.5 mg/dL (0.7-1.3)
[2020-07-05 07:42] VITALS: BP 128/41
--- NOTE | 2020-07-05 07:51 | NUR ---
admit pt admitted to room 350 via ed. pt had a fall at his [facility] and lacerated the back of his head that required júnior. pt tested for covid, has wounds to bilateral lower extemeties two to right calf and montana and 3 to left calf and montana cleansed with soap and water dressed with abds and wrapped with kerlix no odor noted scant bloody drainage noted pictues taken and placed in chart. Sue LEE working day shift and I rolled pt and buttocks ,sacrum and periarea c/d/i no wounds noted. consult to called pt oriented to room call light systm and poc.
[2020-07-05 11:15] VITALS: BP 141/45
--- NOTE | 2020-07-05 13:47 | NUR ---
PT CARE ASSUMED AT 0700, PT ALERT AND ORIENTED X3, FORGETFUL AT TIMES. PT DENIES ANY PAIN, NAUSEA AND VOMITTING. PT IS ON ROOM AIR, NO SIGNS OF DISTRESS NOTED. ASSESSMENT AND VITALS SIGNS STABLE. PT HAS BILATERAL LOWER EXTREMITY WOUNDS. WAITING FOR WOUND DOCTOR FOR RECOMMENDED WOUND DRESSING. HEAD LACERATION DRESSING INTACT AND DRY. FALL PRECAUTIONS IN PLACE. DENIES ANY CHELSY, WILL CONTINUE TO MONITOR.
--- NOTE | 2020-07-05 15:31 | NUR ---
CM SPK W/PT'S SISTER/DPOA, RHEA THERE WAS NO ANSWER IN PT'S ROOM. PT RESIDES AT [facility], PER RHEA PT MOVED THERE IN DECEMBER 2019. PT HAS NO DME AND AMBULATES, USUSALLY ABLE TO COMPLETE HIS OWN SHOWER. RHEA EXPRESSED CONCERN ABOUT NOT RECEIVING ANY UPDATES ON PT'S CONDITIONS. RHEA STATED SHE ATTEMPTED TO CALL RN 3X, ONCE SHE WAS PLACE ON HOLD FOR 20MIN. CM CONTACT RN STATION, YASMINE W/DOLORES, PER DOLORES PT'S NURSE WAS ON LUNCH, AND DOLORES WOULD RELAY MESSAGE TO CONTACT RHEA. CM LFT VM FOR INTAKE DEPT AT [facility]. CM TO CONT TO FOLLOW.
--- NOTE | 2020-07-05 16:36 | NUR ---
PT IS OFF ISOLATION PER SAVAGE CHAKRABORTY.
--- NOTE | 2020-07-05 19:34 | NUR ---
PT TRANSFERRED TO 462, REPORT GIVEN TO ROSA HENRIQUEZ
[2020-07-05 19:35] VITALS: BP 128/59
--- NOTE | 2020-07-05 19:37 | NUR ---
1910 ASSUMED CARE OF PT AFTER TRANSFER, BASELINE ASSESSMENT COMPLETED, FALL PRECAUTIONS IN PLACE, WILL CONTINUE TO MONITOR
--- NOTE | 2020-07-05 20:39 | NUR ---
REPORT RECEIVED FORM TERESA/ROSA ON , PATIENT ARRIVED PER BED FROM THE UNIT. REPORT GIVEN TO BRENT/ROSA.
--- NOTE | 2020-07-06 07:02 | NUR ---
REPORT TO MICHELE, AWAITING RESULTS FOR VANC TROUGH PRIOR TO HANGING ORDERED VANCOMYCIN, MICHELE AWARE AND WILL HANG ONCE RESULTED
[2020-07-06 11:11] VITALS: BP 126/28
[2020-07-06 15:55] VITALS: BP 134/31
--- NOTE | 2020-07-06 17:33 | NUR ---
Assumed pt care this am, VS stable, alert and oriented x2. Was able to work with PT this am. Pt is a set up but able to feed himself. All pulses are normal, wound care and dressing change done, pt requested for wraps to be loosend later on in the shift. POC followed with no signs or verbalizations of distress noted. Seen by Dr. Lund, no issues found. Spoke to the sister, informed the pt. Endorsed to the night nurse.
[2020-07-06 20:04] VITALS: BP 143/37
--- NOTE | 2020-07-07 05:38 | NUR ---
Assumed pt care at 1900. Pt's A/OX2,able to make needs known. VSS. C/o pain to BLE especially with movement. Medicated with Tylenol with relief reported. Wound care done and pt tolorated well. Pt had accidentally pulled IV out,reinserted with 3 attempts on Right hand and IVF initiated as ordered. Mckeon in place to DD with yellow urine draining. Pt resting quietly at this time,will continue to monitor pt. Fall precautions in place.
[2020-07-07 06:28] LABS: CALCIUM 8.6 mg/dL (8.5-10.1); POTASSIUM 3.8 mmol/L (3.5-5.1)
[2020-07-07 06:29] LABS: CREATININE 1.3 mg/dL (0.7-1.3)
[2020-07-07 07:10] VITALS: BP 118/73
[2020-07-07 07:15] VITALS: BP 154/51
[2020-07-07] MEDS ORDERED: Dermacerin 4 OZ. TOP (10:12)
[2020-07-07] MEDS ORDERED: GENTAMICIN SULF30 GM TOP (10:12)
[2020-07-07] MEDS ORDERED: AMMONIUM LACTA226 GM TOP (10:12)
[2020-07-07] MEDS ORDERED: KEFLEX500 M1 PO (10:14)
[2020-07-07 15:07] VITALS: BP 148/49
[2020-07-07] MEDS ORDERED: DOXYCYCLINE HY100 M3 PO (15:21)
--- NOTE | 2020-07-07 16:19 | NUR ---
DISCHARGE BACK TO [facility] HAD BEEN ANTICPATED THIS DAY. STAFF CARLEY AND YESENIA HAD BEEN NOTIFIED OF DC THIS AM PENDING REPEAT COVID TEST. NEGATIVE COVID TEST RESULTED AROUND 1530. STAF AT FACILITY NOTIFIED AND WE WERE TOLD BY ONE PERSON THAT THEY DIDN'T HAVE ANYONE TO DO THE ADMISSION AND TOLD BY ANOTHER THAT THEY NEED TO MOVE SOME PEOPLE AROUND IN ORDER TO HAVE BED FOR HIM TO RETURN TO FOR 14 DAYS. CM NOTIFIED PT'S SISTER. ANTICPATE DC IN THE MORNING.
--- NOTE | 2020-07-07 20:04 | NUR ---
Assuemed pt care this am, FC removed, woumd care, dressing change an d pictures taken. Walkes with a walker, stayed on the recliner for most of the day. diet and medications are well tolerated. WAs suppose to dc, but was advise this will happen tomorrow. POC followed with no signs or verbalizations of distress noted. Endorsed to the night nurse.
[2020-07-07 20:05] VITALS: BP 142/36
--- NOTE | 2020-07-08 07:45 | NUR ---
VSS-AFEBRILE. ROOM AIR. INCONTINENT OF MULTIPLE WATERY STOOLS OVERNIGHT. SHOWER GIVEN, AND BILATERAL LE DRESSINGS CHANGED DUE TO BEING SOILED. C/O PAIN WITH LEGS, TYLENOL PARTIALLY RELIEVED DISCOMFORT. FALL PRECAUTIONS IN PLACE.
[2020-07-08 08:12] LABS: CALCIUM 8.9 mg/dL (8.5-10.1); CREATININE 1.3 mg/dL (0.7-1.3); POTASSIUM 3.7 mmol/L (3.5-5.1)
--- NOTE | 2020-07-08 10:48 | NUR ---
PT IS TO DC BACK TO [facility] TODAY VIA [facility] BETWEEN 12:00-12:30. PT AND SISTERS ARE AWARE. CHART COPY MADE. ORDERS FAXED. NURSE GIVEN NUMBER FOR REPORT. NO OTHER CM INTERVENTION INDICATED. CASE CLOSED.
--- NOTE | 2020-07-08 10:52 | NUR ---
PT DISCHARGING TODAY TO [facility] FOR SKILLED STAY FAXED DC ORDERS/SUMMARY TO FACILITY SPOKE WITH CARLEY PLAZA) THEY ARE ABLE TO TAKE PT TODAY BUT DO NOT HAVE ACCESS TO TRANSPORT. TRANSPORT ARRANGED WITH [facility] FOR [id number]. LEFT MSG WITH PT'S SISTER (RHEA) OF DC AND TIME OF TRANSPORT. UNIT NOTIFIED AND CHART COPY PER US. RN TO CALL REPORT TO [phone].
[2020-07-08 12:15] VITALS: BP 134/25
[2020-07-08] MEDS ORDERED: LASIX 20 MG TAB20 MG PO (12:26)
--- NOTE | 2020-07-08 20:07 | NUR ---
PT A&OX4, VSS, DENIES PAIN. PATIENT DISCHARGED TO FACILITY. NO SIGNS OF DISTRESS. WOUND CARE COMPLETED BY NOC NURSE AT 0500. ALL BELONGINGS WITH PATIENT. IV REMOVED
== END 2020-07-08 12:45 | DRG 871 ==
LOC: ER 13:01 → 3W 17:07 → EROBS 17:07 → 4W 17:07 → 3W 22:07 → 4W 07-05 19:19
PROVIDERS: Hospitalist; Physician Assistant; ADMIT Internal Medicine; ATTEND Internal Medicine
PROC: 0HQ0XZZ Repair Scalp Skin, External Approach (ICD-10-PCS; principal; 2020-07-04)
DX: A41.9 Sepsis, unspecified organism (principal); N17.0 Acute kidney failure with tubular necrosis; L03.116 Cellulitis of left lower limb; L03.115 Cellulitis of right lower limb; E44.0 Moderate protein-calorie malnutrition; N39.0 Urinary tract infection, site not specified; J84.9 Interstitial pulmonary disease, unspecified; L97.829 Non-pressure chronic ulcer of other part of left lower leg with unspecified severity; L97.819 Non-pressure chronic ulcer of other part of right lower leg with unspecified severity; Z20.828 Contact with and (suspected) exposure to other viral communicable diseases; R65.20 Severe sepsis without septic shock; S01.01XA Laceration without foreign body of scalp, initial encounter; N40.1 Benign prostatic hyperplasia with lower urinary tract symptoms; G62.9 Polyneuropathy, unspecified; I25.10 Atherosclerotic heart disease of native coronary artery without angina pectoris; E78.5 Hyperlipidemia, unspecified; K21.9 Gastro-esophageal reflux disease without esophagitis; M10.9 Gout, unspecified; M19.90 Unspecified osteoarthritis, unspecified site; I73.9 Peripheral vascular disease, unspecified; N18.30 Chronic kidney disease, stage 3 unspecified; E53.8 Deficiency of other specified B group vitamins; I27.20 Pulmonary hypertension, unspecified; I34.0 Nonrheumatic mitral (valve) insufficiency; I87.8 Other specified disorders of veins; I12.9 Hypertensive chronic kidney disease with stage 1 through stage 4 chronic kidney disease, or unspecified chronic kidney disease; J84.10 Pulmonary fibrosis, unspecified; G47.00 Insomnia, unspecified; R63.4 Abnormal weight loss; B96.4 Proteus (mirabilis) (morganii) as the cause of diseases classified elsewhere; S09.90XA Unspecified injury of head, initial encounter; W18.39XA Other fall on same level, initial encounter; Y93.89 Activity, other specified; Y92.89 Other specified places as the place of occurrence of the external cause; Y99.8 Other external cause status; Z83.3 Family history of diabetes mellitus; Z82.49 Family history of ischemic heart disease and other diseases of the circulatory system; Z79.82 Long term (current) use of aspirin; Z79.899 Other long term (current) drug therapy; Z68.30 Body mass index [BMI] 30.0-30.9, adult
CPT/HCPCS: 10047; 10879; 50455

== ENCOUNTER 2020-08-15 13:07 | Inpatient (IN) | payer OTHER ==
[~2020-08-15] VITALS: Ht 182.9 cm; Wt 94.3 kg
--- NOTE | ~2020-08-15 | EMS ---
[place] [address] EMS Patient Care Report Name: ROMAN BROWN Room #: REG KAMRON Mccord#: [id number] Admission: 08/15/20 Attend Phys: Discharge: Date of : 45 Report #: [id number] THIS REPORT FOR: //name// Report Transmitted: 08/15/2020 12:57 EMS Care Summary [place], [place] Incident [id number] @ 08/15/2020 12:29 Incident Location [address] [place] [address] Patient ROMAN BROWN Male, 75 Years 1945 Patient Address [address] [place] [address] Patient History Hypertension (HTN),Gastro-Esophageal Reflux Disease (GERD),End Stage Renal Disease (ESRD),Cardiac Condition - Other,Atrial Fibrillation, Patient Allergies No known allergies, Patient Medications Acetaminophen, Furosemide, Niacin, Albuterol, Lipitor, ASA, Carvedilol, Pantoprazole, Chief Complaint Generalized Weakness Disposition Transported No Lights/[place] Dispatch Reason Sick Person Transported To [facility] Narrative Responded to the address for report of a sick patient. [place] [address] EMS Patient Care Report Name: ROMAN BROWN Room #: REG KAMRON Mccord#: [id number] Admission: 08/15/20 Attend Phys: Discharge: Date of : 45 Report #: [id number] [facility] and found the patient in his room 10B at the [facility] sitting upright on the side of the bed alert and oriented x4 with a GCS of 15. The [facility] staff on scene advised that the patient had been experiencing altered mental status and SOA for the past two days. The [facility] staff on scene when asked to specify when the patients last known well was they advised that it was believed to be around breakfast two days ago. The [facility] also advised when questioned by EMS that the patients onset of SOA began approximately two days ago and advised that the patients work of breathing appeared to get worse overtime. The patient was assessed and found to be alert and oriented with no signs of altered mental status or labored breathing. The patient when questioned on a chief complaint initially reported no complaints. The patient was noted to have cellulitis in his lower extremities during assessment and it was also noted the patient had weeping pedal edema in both lower extremities. The patient was then assisted and with the support of EMS personnel was placed onto the stretcher from the [facility] bed. The patient was then moved out of the facility and placed into the back of the ambulance without incident. The patient was then monitored for signs of stroke prior to transport and it was then discovered that patient had generalized weakness. The patient was noted to have no facial droop or slurred speech and had bilateral ramp supervisor that were both noted to be normal and symmetrical in strength. The patient however when assessed for arm drift was unable to hold his arms out in front of him due to him feeling weak. The patient had no further findings and had no changes in mental status or condition during transport. Patient care was then transferred to the receiving facility without incident. Med unit back in service. Receiving facility signed on behalf of the patient due to the patient being unable to sign because of his weakness. Initial Vitals @12:44P: 92,Pain: 0/10,CO: 7,SpO2: 96,OH Suspected: false @12:43P: 90,CO: 4,SpO2: 94, @12:48P: 81,R: 18,BP: 151/58,Pain: 0/10,GCS: 15,Glucose: 206,SpO2: 95,Revised Trauma: 12,OH Suspected: false @12:42P: 132,R: 18,BP: 185/62,Pain: 0/10,GCS: 15,SpO2: 96,Revised Trauma: 12,OH Suspected: false Assessments @12:34MENTAL:Person Oriented,Time Oriented,Place Oriented,Event Oriented,SKIN:HEENT:Head/Face: No Abnormalities,Eyes: No Abnormalities,Neck/Airway: No Abnormalities,LUNG SOUNDS:General: No Abnormalities,ABDOMEN:General: No Abnormalities,PELVIS//GI:No Abnormalities,EXTREMITIES:Left Arm: Weakness,Right Leg: Edema,Left Leg: Edema,Right Arm: Weakness,PULSE:Radial: 2+ Normal,NEURO: Impression Generalized Weakness [facility] [address] [place] [address] EMS Patient Care Report Name: ROMAN BROWN Room #: REG KAMRON Mccord#: [id number] Admission: 08/15/20 Attend Phys: Discharge: Date of : 45 Report #: [id number] Procedures @12:4412-Lead ECGResponse: UnchangedSucceeded@12:433-Lead ECGResponse: UnchangedSucceeded@12:34ALS AssessmentResponse: UnchangedSucceeded Timeline 12:28,Call Received 12:28,Dispatch Notified 12:29,Dispatched 12:30,En Route 12:32,On Scene 12:34,At Patient 12:34,ALS Assessment,Response: UnchangedSucceeded, 12:42,BP: 185/62 M,PULSE: 132,RR: 18 R,SPO2: 96 Ox,ETCO2: ,BG: ,PAIN: 0,GCS: 15, 12:43,3-Lead ECG,Response: UnchangedSucceeded, 12:43,BP: / M,PULSE: 90,RR: R,SPO2: 94 Ox,ETCO2: ,BG: ,PAIN: ,GCS: , 12:44,12-Lead ECG,Response: UnchangedSucceeded, 12:44,BP: / M,PULSE: 92,RR: R,SPO2: 96 Ox,ETCO2: ,BG: ,PAIN: 0,GCS: , 12:48,BP: 151/58 M,PULSE: 81,RR: 18 R,SPO2: 95 Ox,ETCO2: ,B,PAIN: 0,GCS: 15, 12:49,Depart Scene 13:00,At Destination 13:19,Call Closed Disclaimer v1.1 Copyright 2020 [employer] This EMS Care Summary contains data elements from the applicable legal record (which may be displayed differently). It is designed to provide pertinent information for the following purposes: continuity of care, clinical quality, and state data reporting. The complete legal record is available to ED staff and administrators of the receiving hospital in [employer] Patient Tracker. All data is provided "as is."
[~2020-08-15 13:07] MED LIST changes: +AMMONIUM LACTA226 GM TOP; +DOXYCYCLINE HY100 M3 PO; +Dermacerin 4 OZ. TOP; +GENTAMICIN SULF30 GM TOP; +LASIX 20 MG TAB20 MG PO
[2020-08-15 13:09] VITALS: BP 137/46
--- NOTE | 2020-08-15 14:21 | NUR ---
ATTEMPT X 2 FOR BLOOD AND IV WITHOUT SUCCESS. PT IS DIFFICULT STICK CALLED IV TEAM AND INFORMED DR LOPEZ
[2020-08-15 15:06] LABS: ABSOLUTE NEUTROPHILS 10.9 thou/uL (1.4-8.2); BASOPHILS 0.3 % (0.0-2.0); EOSINOPHILS 1.7 % (0.0-3.0); HEMATOCRIT 35.6 % (42.0-52.0); HEMOGLOBIN 11.4 gm/dL (14.0-18.0); MCH 32.9 pg (26.0-34.0); MCHC 31.9 g/dL (28.0-37.0); MCV 103.1 fL (80.0-100.0); MONOCYTES 10.5 % (1.0-8.0); PLATELET COUNT 227 thou/uL (150-400); POLYS 70.5 % (36.0-66.0); RBC 3.45 mil/uL (4.50-6.00); RDW 18.7 % (10.5-14.5); WBC 15.4 thou/uL (4.0-11.0)
[2020-08-15 15:15] LABS: URINE BILIRUBIN NEGATIVE (Negative); URINE BLOOD TRACE (Negative); URINE CLARITY SL CLOUDY; URINE COLOR YELLOW; URINE GLUCOSE-RANDOM* NEGATIVE (Negative); URINE KETONES NEGATIVE (Negative); URINE NITRITE-REFLEX NEGATIVE (Negative); URINE PROTEIN (DIPSTICK) 1+ (Negative)
[2020-08-15 15:16] LABS: URINE LEUKOCYTES-REFLEX 3+ (Negative)
[2020-08-15 15:27] LABS: ANION GAP 10 mmol/L (7-16); BUN 66 mg/dL (7-18); CALCIUM 9.6 mg/dL (8.5-10.1); CHLORIDE 99 mmol/L (98-107); CO2 27 mmol/L (21-32); CREATININE 3.7 mg/dL (0.7-1.3); GLUCOSE 146 mg/dL (74-106); POTASSIUM 4.4 mmol/L (3.5-5.1); SODIUM 136 mmol/L (136-145)
[2020-08-15 15:32] LABS: ALBUMIN 2.9 g/dL (3.4-5.0); DIRECT BILIRUBIN 0.4 mg/dL (<0.1-0.2); SGOT 22 U/L (15-37); SGPT 11 U/L (16-63); TOTAL BILIRUBIN 1.1 mg/dL (0.2-1.0); TOTAL PROTEIN 7.2 g/dL (6.4-8.2); TROPONIN-I <0.06 ng/mL (<0.06)
[2020-08-15 15:47] LABS: SQUAMOUS 0-3 Few /LPF (0-3); URINE WBC-REFLEX >25 Many /HPF (0-5)
[2020-08-15 15:48] LABS: BACTERIA-REFLEX >30 Many /HPF (None Seen); CASTS None Seen /LPF (None Seen); CRYSTALS None Seen /LPF (None Seen); URINE RBC 0-2 Rare /HPF (0-2)
[2020-08-15] MEDS ORDERED: APAP W/CODEINE1 TA2 PO (16:25)
[2020-08-15] MEDS ORDERED: DEMADEX20 MG PO (16:26)
[2020-08-15] MEDS ORDERED: MIRTAZAPINE15 M2 PO (16:26)
[2020-08-15] MEDS ORDERED: LIPITOR 40 MG T40 M1 PO (16:26)
[2020-08-15 16:35] VITALS: BP 112/50
--- NOTE | 2020-08-15 18:09 | NUR ---
RETURNED TO ROOM FROM CT
--- NOTE | 2020-08-15 18:30 | NUR ---
UNABLE TO GET IV ACCESS TO FLUSH SINCE RETURN FROM CT SCAN. CALLED [facility]
[2020-08-15 19:12] VITALS: BP 110/46
[2020-08-15] MEDS ORDERED: COREG3.125 MG PO (19:37)
[2020-08-15] MEDS ORDERED: NIACIN 500 MG500 M1 PO (19:38)
[2020-08-15] MEDS ORDERED: VITAMIN E1000 UNIT PO (19:39)
[2020-08-15] MEDS ORDERED: PROTONIX40 M2 PO (19:39)
[2020-08-15 19:43] VITALS: BP 119/44
--- NOTE | 2020-08-16 02:06 | NUR ---
PROGRESS ADMIT PT ADMITTED FROM [facility] WITH WEIGHT LOSS, POOR APPETITE, BILATERAL LE CELLULITIS, AND INCREASING WEAKNESS. PT A/O X4 UP AD DONTRELL GAIT STEADY. ANSWERED ADMISSION QUESTIONS BUT REFUSED SOME MEDICATIONS AND STATED I COULD TAKE A PIC OF HIS RIGHT FOOT BLISTER IN THE MORNING. CAME UP FROM ED WITH BOTH LEGS WRAPPED. IVF'S INITIATED AWAITING DELIVERY OF IV ANTIBIOTICS. VSS. CONTINUE POC.
--- NOTE | 2020-08-16 07:16 | EKG ---
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: MERCEDES : 1945 Requested By: Román Dawson Order Number: [id number] MD: Corey Douglass Measurements Intervals [place] Rate: 75 P: 54 ID: 184 QRS: -37 QRSD: 121 T: 85 QT: 423 QTc: 473 Interpretive Statements Sinus rhythm Atrial premature complex Probable left atrial enlargement Nonspecific IVCD with LAD LVH with secondary repolarization abnormality Compared to ECG 07/04/2020 14:27:06 Atrial premature complex(es) now present Sinus arrhythmia no longer present Electronically Signed On 08-16-2020 7:16:17 WIRE STRETCHER by Corey Douglass [email or web address] <ELECTRONICALLY SIGNED> By: Corey Douglass MD, [facility] 08/16/20 0716 09 09 Corey Douglass MD, FAC /EPI
[2020-08-16 07:24] VITALS: BP 142/40
[2020-08-16 10:32] LABS: HEMOGLOBIN 12.9 gm/dL (14.0-18.0); MCH 32.5 pg (26.0-34.0); MCHC 30.7 g/dL (28.0-37.0); MCV 106.1 fL (80.0-100.0); RBC 3.96 mil/uL (4.50-6.00); RDW 19.5 % (10.5-14.5); WBC 16.2 thou/uL (4.0-11.0)
[2020-08-16 10:43] LABS: CALCIUM 9.9 mg/dL (8.5-10.1); POTASSIUM 4.8 mmol/L (3.5-5.1)
[2020-08-16 10:51] LABS: CREATININE 2.5 mg/dL (0.7-1.3)
--- NOTE | 2020-08-16 12:00 | NUR ---
PT ADMITTED RELATED TO UTI AND ARF. CM REVIEWED CHART AND SPOKE WITH CARE TEAM. CM CALLED AND SPOKE WITH PT THIS DAY. PT APPEARED TO BE A&O X4. CM ROLE INTRODUCED. PT INDICATED HE RESIDES IN LTC AT [facility]. 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 PT INDICATED HE HAD BEEN INDEPDENET WITH ADLS. PT INIDCATED HE PLANS TO RETURN TO [facility] ONCE MEDICALLY STABLE. WITH PT'S PERMISSION CM CALLED AND SPOKE WITH PT'S DPOA/SISTER SHE IS AWARE AND AGREEABLE WITH PT RETURNING TO [facility] ONCE MEDICALLY STABLE. PT IS ON IV ABX, WC CONSULTED, PT/OT, AND WAITING ON URINE C/S. CM TO FOLLOW INDICATED WITH DC PLANNING.
--- NOTE | 2020-08-16 16:49 | NUR ---
FAXED CLINICAL UPDATE TO [facility] RECEIVED CONFIRMATION AND LEFT MSG WITH ADM.
[2020-08-16 20:41] VITALS: BP 147/43
--- NOTE | 2020-08-16 20:45 | NUR ---
PT A&OX4, FORGETFUL. WOUND CARE COMPLETED BY WOUND TEAM. NEW IV PLACED RIGHT FOREARM, FLUIDS RUNNING. NO SIGNS OF DISTRESS. WILL CONTINUE TO MONITOR.
--- NOTE | 2020-08-17 00:42 | NUR ---
ASSUMED CARE OF PT AT 1900. PT IS A/O X3 AND IS UP WITH ASSISTANCE X1 TO THE BR OR BSC. PT IS VERY TIRED THIS EVENING. SWALLOWED MEDICATIONS WHOLE WITH WATER. VSS. NO C/O PAIN OR DISCOMFORT AT THIS TIME. FALL PRECAUTIONS IMPLEMENTED. CONTINUES ON RA, AND MEDSURG STATUS.PROGRESSING TOWARDS PLAN OF CARE GOALS. PT IS AT THIS TIME LYING IN HIS BED AND APPEARS TO BE SLEEPING. WOUND CARE DONE ON DAY SHIFT AND APPEARS TO BE C/D/I. NOT DRAINAGE NOTED. WILL CONTINUE TO MONITOR.
[2020-08-17 07:10] VITALS: BP 109/46
--- NOTE | 2020-08-17 12:27 | NUR ---
Received awake on bed. Due medications given as prescribed, able to swallow meds w/o difficulty. On room air. Vital signs stable. On MS, not on telemetry; no complains and signs of chest pain, crushing sensation and heaviness. Assisted in ADLs. On regular diet- tolerating well; no nausea, no vomiting and no abdominal pain noted. On blood sugar monitoring, taken and recorded accordingly.
--- NOTE | 2020-08-17 14:59 | NUR ---
CARE TEAM INDICATED THAT PT IS PROGRESSING TOWARD GOAL OF DISCHARGE. CARE TEAM INDICATED THAT PT WILL LIKELY BE MEDICALLY STABLE TO DC BACK TO [facility] TOMORROW. CLINICAL UPDATE SENT YESTERDAY. CM TO FOLLOW INDICATED WITH DC PLANNING.
[2020-08-17 15:25] VITALS: BP 119/78
[2020-08-17 19:46] VITALS: BP 114/26
[2020-08-17 20:18] VITALS: BP 118/39
--- NOTE | 2020-08-18 06:06 | NUR ---
ASSUME CARE OF PT AT 1900HRS. PT AOX2-3 AND LETS NEEDS BE KNWON. FALL PRECAUTION IN PLACE. PT USED URINAL THIS SHIFT. PT REPORTED SOME PAIN AND PRNS USED. ABX TREATMENT CONTINUED. DRESSINGS CHANGED. PT WAS ABLE TO SLEEP PART OF THE SHIFT.
[2020-08-18 07:53] VITALS: BP 143/41
[2020-08-18] MEDS ORDERED: CEFUROXIME500 MG PO (09:49)
[2020-08-18] MEDS ORDERED: CLEOCIN HCL300 MG PO (09:50)
--- NOTE | 2020-08-18 10:59 | NUR ---
Pt dcing back to [facility] today. Boiler Erector spoke with Amy teixeira DON and he will return there under his skilled medicare benefit for therapy. They are arranging a w/c van transport and have rec'd the dc orders and his neg covid test from this am. Chart copy in progress. Nursing to call report. Pt and unit RN aware of the dc plan. Pt' sister/dpoa Chelle also updated and agreeable to the dc plan.
[2020-08-18] MEDS ORDERED: AUGMENTIN 875-1 EACH PO (13:12)
--- NOTE | 2020-08-18 20:35 | NUR ---
PT DISCHARGED TO [facility]. ALL BELONGINGS SENT WITH PATIENT. IV REMOVED TODAY. WOUND CARES COMPLETED AND PHOTOS TAKEN. NO SIGNS OF DISTRESS AT TIME OF DISCHARGE.
--- NOTE | 2020-08-24 19:05 | HC ---
[facility] [address] [place] [address] CONSULTATION Name: ROMAN BROWN Room #: 452-P [facility] IN M.R.#: [id number] Admission: 08/15/20 Attend Phys: Cata Hernandez Discharge: 08/18/20 Date of : 45 Report #: [id number] THIS REPORT FOR: cc: Luann Engle MD,Derrick Watson MD, MD ~ DATE OF SERVICE: 08/18/2020 WOUND CARE CONSULTATION PERSONAL PHYSICIAN: Dr. Engle. CHIEF COMPLAINT: Leg swelling. HISTORY OF PRESENT ILLNESS: This is a 75-year-old white male who presents from a care home, was admitted for urinary tract infection and generalized weakness. The patient on admission was noted to have leg swelling with weeping, which prompted consultation for us to evaluate him for his lower extremity wounds. The patient denies any other associated wounds. The patient himself is somewhat confused. Nursing staff deny any other associated wounds. PAST MEDICAL HISTORY: Significant for chronic cellulitis, bilateral lower extremities with venous insufficiency and edema, chronic venous stasis ulcer, left lower extremity, hypertension, coronary artery disease, neuropathy, dementia. CURRENT MEDICATIONS: Multiple, I reviewed the patient's medication list. DRUG ALLERGIES: None. SOCIAL HISTORY: The patient resides in a care facility. FAMILY HISTORY AND REVIEW OF SYSTEMS: Unobtainable because of the patient's demented state. PHYSICAL EXAMINATION: VITAL SIGNS: Temperature 37.1, pulse 85, respirations 19, BP 143/41. GENERAL: This is an awake, but not alert white male who is in no obvious distress. HEENT: Normocephalic, atraumatic. Mucous membranes are dry. Pupils are round. Sclerae white. NECK: Without JVD. LUNGS: Slight diminished breath sounds heard throughout. HEART: Regular. ABDOMEN: Soft, nontender. [facility] [address] [place] [address] CONSULTATION Name: ROMAN BROWN Room #: 452-P [facility] IN ..#: [id number] Admission: 08/15/20 Attend Phys: Cata Hernandez Discharge: 08/18/20 Date of : 45 Report #: [id number] EXTREMITIES: The patient has 3+ edema bilateral lower extremities with multiple superficial venous leg ulcers, which are clean and granulating. Small amount of serous drainage noted without significant erythema or warmth. Distal neurovascular is intact. NEUROLOGIC: Cranial nerves 2-12 grossly intact. Motor and sensory grossly intact. IMPRESSION: 1. Bilateral venous stasis ulcers without signs of cellulitis of lower extremities. 2. Hypertension. 3. Generalized debility with frequent falls. 4. Moderate protein-calorie malnutrition, albumin 2.9. PLAN: We will start morphine, Silvadene cream to the superficial venous leg ulcers, cover this with Xeroform and ABD, Kerlix and Carlo from toes to knee daily. We will make sure we maximize the patient's oral protein supplementation for healing. We will utilize physical and occupational therapy for strengthening. We will continue all other current medications. We will continue to follow the patient. <ELECTRONICALLY SIGNED> By: Derrick Rodriguez MD 08/24/20 1905 [id number] 1316 Derrick Rodriguez MD /nt
== END 2020-08-18 14:52 | DRG 682 ==
LOC: ER 13:07 → EROBS 16:47 → 4W 16:47
PROVIDERS: Emergency Medicine; ADMIT Hospitalist; ATTEND Hospitalist
DX: N17.9 Acute kidney failure, unspecified (principal); G93.41 Metabolic encephalopathy; R65.11 Systemic inflammatory response syndrome (SIRS) of non-infectious origin with acute organ dysfunction; N39.0 Urinary tract infection, site not specified; E44.0 Moderate protein-calorie malnutrition; L03.116 Cellulitis of left lower limb; L03.115 Cellulitis of right lower limb; Z16.12 Extended spectrum beta lactamase (ESBL) resistance; N18.4 Chronic kidney disease, stage 4 (severe); Z20.828 Contact with and (suspected) exposure to other viral communicable diseases; N40.0 Benign prostatic hyperplasia without lower urinary tract symptoms; I25.10 Atherosclerotic heart disease of native coronary artery without angina pectoris; K21.9 Gastro-esophageal reflux disease without esophagitis; M10.9 Gout, unspecified; F03.90 Unspecified dementia, unspecified severity, without behavioral disturbance, psychotic disturbance, mood disturbance, and anxiety; M19.90 Unspecified osteoarthritis, unspecified site; G62.9 Polyneuropathy, unspecified; E78.5 Hyperlipidemia, unspecified; R63.4 Abnormal weight loss; I87.8 Other specified disorders of veins; B96.20 Unspecified Escherichia coli [E. coli] as the cause of diseases classified elsewhere; I12.9 Hypertensive chronic kidney disease with stage 1 through stage 4 chronic kidney disease, or unspecified chronic kidney disease; Z82.49 Family history of ischemic heart disease and other diseases of the circulatory system; Z68.28 Body mass index [BMI] 28.0-28.9, adult
CPT/HCPCS: 10040

== ENCOUNTER → 2020-09-01 | Outpatient (CLI) | payer OTHER ==
[~2020-09-01] MED LIST changes: +APAP W/CODEINE1 TA2 PO; +AUGMENTIN 875-1 EACH PO; +CEFUROXIME500 MG PO; +CLEOCIN HCL300 MG PO; +COREG3.125 MG PO; +DEMADEX20 MG PO; +LIPITOR 40 MG T40 M1 PO; +MIRTAZAPINE15 M2 PO
== END ==
LOC: HYPER 08:50
PROVIDERS: ATTEND Emergency Medicine
DX: E11.622 Type 2 diabetes mellitus with other skin ulcer (principal); L97.812 Non-pressure chronic ulcer of other part of right lower leg with fat layer exposed; L97.822 Non-pressure chronic ulcer of other part of left lower leg with fat layer exposed; E11.621 Type 2 diabetes mellitus with foot ulcer; L97.512 Non-pressure chronic ulcer of other part of right foot with fat layer exposed; L03.116 Cellulitis of left lower limb; L03.115 Cellulitis of right lower limb; E11.22 Type 2 diabetes mellitus with diabetic chronic kidney disease; I12.9 Hypertensive chronic kidney disease with stage 1 through stage 4 chronic kidney disease, or unspecified chronic kidney disease; N18.4 Chronic kidney disease, stage 4 (severe); I87.2 Venous insufficiency (chronic) (peripheral); I25.119 Atherosclerotic heart disease of native coronary artery with unspecified angina pectoris; R60.0 Localized edema; R06.00 Dyspnea, unspecified; E78.5 Hyperlipidemia, unspecified; J84.10 Pulmonary fibrosis, unspecified; K21.9 Gastro-esophageal reflux disease without esophagitis; M10.30 Gout due to renal impairment, unspecified site; M17.0 Bilateral primary osteoarthritis of knee; F03.90 Unspecified dementia, unspecified severity, without behavioral disturbance, psychotic disturbance, mood disturbance, and anxiety; F32.9 Major depressive disorder, single episode, unspecified; Z90.49 Acquired absence of other specified parts of digestive tract; Z79.82 Long term (current) use of aspirin

== ENCOUNTER 2020-09-12 21:02 | Inpatient (IN) | payer OTHER ==
[~2020-09-12] VITALS: Ht 185.4 cm; Wt 99.2 kg
[2020-09-12 21:03] VITALS: BP 134/48
[2020-09-12 22:17] LABS: URINE BILIRUBIN 1+ (Negative); URINE BLOOD 3+ (Negative); URINE CLARITY CLOUDY; URINE COLOR YELLOW; URINE GLUCOSE-RANDOM* NEGATIVE (Negative); URINE KETONES NEGATIVE (Negative); URINE NITRITE-REFLEX NEGATIVE (Negative); URINE PROTEIN (DIPSTICK) 1+ (Negative); URINE SPECIFIC GRAVITY 1.025 (1.005-1.035); URINE UROBILINOGEN 0.2 E.U./dl (0.2-1.0)
[2020-09-12 22:18] LABS: URINE LEUKOCYTES-REFLEX 2+ (Negative)
[2020-09-12 22:20] LABS: ICTOTEST (BILI CONFIRMATORY) Positive (Negative)
[2020-09-12 22:36] LABS: BACTERIA-REFLEX >30 Many /HPF (None Seen); CASTS None Seen /LPF (None Seen); CRYSTALS None Seen /LPF (None Seen); MUCUS 0-3 Light strn/LPF (None Seen); SQUAMOUS >10 Many /LPF (0-3); URINE RBC 0-2 Rare /HPF (0-2); URINE WBC-REFLEX 6-15 Few /HPF (0-5)
[2020-09-12 23:04] LABS: RDW 20.1 % (10.5-14.5)
[2020-09-12 23:06] LABS: HEMATOCRIT 38.1 % (42.0-52.0); HEMOGLOBIN 11.8 gm/dL (14.0-18.0); MCH 32.5 pg (26.0-34.0); MCV 104.8 fL (80.0-100.0); PLATELET COUNT 256 thou/uL (150-400); RBC 3.64 mil/uL (4.50-6.00); WBC 29.7 thou/uL (4.0-11.0)
[2020-09-12 23:15] LABS: CALCIUM 9.5 mg/dL (8.5-10.1); CREATININE 8.3 mg/dL (0.7-1.3); POTASSIUM 4.4 mmol/L (3.5-5.1)
[2020-09-12 23:21] LABS: ALBUMIN 2.7 g/dL (3.4-5.0); TOTAL BILIRUBIN 0.6 mg/dL (0.2-1.0); TOTAL PROTEIN 7.9 g/dL (6.4-8.2)
[2020-09-13] VITALS (7 sets, daily range): BP systolic 100–171; BP diastolic 35–63
[2020-09-13 00:01] LABS: ABSOLUTE NEUTROPHILS 27.3 thou/uL (1.4-8.2); NUCLEATED RBCS 3 /100WBC
[2020-09-13 00:02] LABS: ANISOCYTOSIS 2+; MACROCYTES 1+
[2020-09-13 00:03] LABS: BURR CELLS 2+
--- NOTE | 2020-09-13 19:36 | NUR ---
PATIENT ARRIVED AT 1748. PATIENT SETTLED INTO BED. TELEMETRY ATTACHED. VS OBTAINED. O2 SAT WAS DIFFICULT TO SUPERVISOR ROCKET [employer]. RT WAS CALLED REGARDING LOW 02 SATS ON MONITOR WHEN IT WOULD SUPERVISOR ROCKET [employer]. PATIENT ON 10 L. PATIENT'S SISTER CALLED AT [phone] AND SHE WAS UPDATED AND EDUCATED ON THE PATIENT'S CONDITION AND PLAN OF CARE.
[2020-09-14 00:12] VITALS: BP 151/40
[2020-09-14 05:37] LABS: HEMATOCRIT 36.4 % (42.0-52.0); HEMOGLOBIN 11.6 gm/dL (14.0-18.0); MCH 32.8 pg (26.0-34.0); MCHC 31.8 g/dL (28.0-37.0); MCV 103.1 fL (80.0-100.0); RBC 3.53 mil/uL (4.50-6.00); RDW 20.2 % (10.5-14.5)
[2020-09-14 05:46] LABS: CALCIUM 9.2 mg/dL (8.5-10.1); MAGNESIUM 2.4 mg/dL (1.8-2.4); POTASSIUM 3.4 mmol/L (3.5-5.1)
[2020-09-14 06:11] LABS: CREATININE 5.1 mg/dL (0.7-1.3)
--- NOTE | 2020-09-14 08:08 | NUR ---
RECEIVED REPORT FROM ARVIND GIRON SHIFT RN.NO IV ACCESS,PT PULLED IT.PT TRYING TO REACH TO HIS PAUL AND OXYGEN TUBING.PLACE PT ON BILATERAL SOFT WRIST.ORDERED OBTAINED FROM [facility] FROM 1999 BUT UNABLE TO PUT IN THE COMPUTER.IT CAN ONLY TAKE FROM MIDNIGHT.POC CONTINUED.
[2020-09-14 08:15] VITALS: BP 159/57
--- NOTE | 2020-09-14 08:51 | HC ---
[facility] [place] [place] [address] CONSULTATION Name: ROMAN BROWN Room #: 200-I ADM IN .R.#: [id number] Admission: 09/12/20 Attend Phys: Denys Diaz MD Discharge: Date of : 45 Report #: [id number] THIS REPORT FOR: cc: Luann Engle MD, Ramilo MD Barry, Joseph W. MD ~ DATE OF SERVICE: 09/13/2020 INFECTIOUS DISEASE CONSULTATION ATTENDING PHYSICIAN: Dr. Diaz. REASON FOR EVALUATION: Multifocal infections including complicated urinary tract infection, bilateral lower extremity wounds with skin and soft tissue infections in the setting of progressive renal failure and encephalopathy, likely acute on chronic. HISTORY OF PRESENT ILLNESS: Chart reviewed, the patient examined. This 75-year-old gentleman lives in a facility, apparently has some degree of underlying dementia. He is known to have chronic renal insufficiency. He has some hypertension, who apparently was referred to the Emergency Room initially complained of having pain all over, when I questioned him, he localizes to his bilateral feet. He was unable to give any details. He does have wounds noted on the feet and the legs that appear to be limited to the superficial structures. He notes they are quite painful. He does have drainage he believes as well. It is not clear that he had fevers or chills, has not been recorded since his presentation. He notes he has poor appetite with decreased p.o. intake, does admit to some mild dyspnea as well and GI related complaints. CT abdomen and pelvis was done, which did not show any acute process. Did note markedly enlarged prostate. Urinalysis did show moderate pyuria. Chest x-ray showed some basilar scarring versus infiltrate, although CT seemed to favor scarring with secondary acute inflammation. Lactic acid was normal at 1.3. COVID testing was negative as well. Blood cultures collected at time of the presentation are negative thus far. Empirically, he was placed on antimicrobial therapy with Zosyn, given a dose of vancomycin, adjusted for his renal failure with creatinine noted to be 8.3. ALLERGIES: None known. MEDICATIONS: Include vancomycin, heparin subcutaneously, pantoprazole, insulin, Zosyn, ondansetron. PAST MEDICAL HISTORY: Chronic renal insufficiency with progression, hypertension, BPH, obstructive uropathy, known vasculopathy with coronary artery disease, peripheral neuropathy, hyperlipidemia, reflux, gout, dementia, [facility] [address] [address] CONSULTATION Name: ROMAN BROWN Room #: 200-I [facility] IN ..#: [id number] Admission: 09/12/20 Attend Phys: Denys Diaz MD Discharge: Date of : 45 Report #: [id number] osteoarthritis, bilateral lower extremity chronic dermopathy, he has got apparent venous stasis insufficiency with dermatitis and ulcers. SOCIAL HISTORY: Nonsmoker, no ethanol, no illicit drug use. FAMILY HISTORY: Noncontributory. REVIEW OF SYSTEMS: Somewhat limited given his encephalopathy. PHYSICAL EXAMINATION: GENERAL: He appears chronically ill, undernourished, eezr-kc-hejyizus distress. VITAL SIGNS: Temperature 97.6, pulse 74, respirations 15, blood pressure 143/45. SKIN: Warm, dry, no rashes. HEENT: Normocephalic. Extraocular muscles intact. NECK: Supple. LUNGS: Few scattered coarse breath sounds. HEART: Regular. May have soft systolic murmur. ABDOMEN: Soft, no apparent tenderness, mildly distended. EXTREMITIES: Bilateral lower extremities have moderate to marked inflammatory changes noted to below the knee. He has got several ulcers involving the dorsum of the foot on the right pretibial sites, moderate to marked inflammatory changes. No particular odor was noted. I did not see overt purulence. There is some moderate degree of debris and devitalized tissue. GENITOURINARY AND RECTAL: Deferred. LABORATORY DATA: Coronavirus testing was negative. Blood cultures sterile thus far. CBC: White count of 29.7, H and H 11.8 and 38.1, platelets of 256, and 12% bands. Does have some anish cells. Electrolytes: Sodium 131, potassium 4.4, chloride 94, bicarbonate is 23, anion gap of 14, BUN and creatinine 131 and 8.3 glucose of 171. Albumin 2.7, total protein 7.9. LFTs unremarkable. Urinalysis, 1+ protein, wbc's per high power field 6-15, greater than 30 bacteria. Urine culture is pending. ASSESSMENT AND PLAN: Complicated urinary tract infection, likely contributed to as a result of obstructive uropathy with markedly enlarged prostate. Secondly, chronic renal failure, fairly widespread vasculopathy and bilateral lower extremity inflammatory eruption with likely multifactorial including venous stasis insufficiency and dermatitis. He has chronic wounds as well ____ dementia. We will continue empiric therapy dosing for his renal failure, awaiting nephrology evaluation. Continue wound care as prescribed. At some point, may well benefit from debridement either at the bedside or operative. Noted wound care is seeing him as well. We will await followup culture results. Continue to monitor expectantly, certainly at risk for additional complications, ____ would be able to follow directions such as per incentive [facility] [address] [place] [address] CONSULTATION Name: ROMAN BROWN Room #: 200-I ADM IN ..#: [id number] Admission: 09/12/20 Attend Phys: Denys Diaz MD Discharge: Date of : 45 Report #: [id number] spirometry is unclear. I do not know his baseline mental status, but may be some degree of encephalopathy due to his current situation. Continue to optimize his nutritional status. <ELECTRONICALLY SIGNED> By: Karson Carlisle MD 09/14/20 0851 1333 00 Karson Carlisle MD /nt
[2020-09-14 11:00] VITALS: BP 162/49; BP 1625/49
--- NOTE | 2020-09-14 14:23 | 2DMMODE ---
[facility] [place] [address] 2 D/M-MODE ECHOCARDIOGRAM Name: ROMAN BROWN Room #: 200-I ADM IN [facility]#: [id number] Admission: 09/12/20 Attend Phys: Denys Diaz MD Discharge: Date of : 45 Report #: [id number] THIS REPORT FOR: cc: Luann Engle MD, Ramilo MD Lammoglia, Francisco J. MD ~ APPROVED REPORT Study performed: 09/14/2020 12:55:24 EXAM: Comprehensive 2D, Doppler, and color-flow Echocardiogram Patient Location: In-Patient Room #: 200 Status: routine BSA: 2.24 HR: 109 bpm BP: 162/49 mmHg Other Information Study Quality: Adequate Indications Non STEMI Sepsis 2D Dimensions RVDd: 25.22 mm IVSd: 18.73 (7-11mm) LVOT Diam: 25.92 (18-24mm) LVDd: 47.50 mm PWd: 15.27 (7-11mm) Ascending Ao: 45.53 (22-36mm) LVDs: 31.14 (25-40mm) Left Atrium: 43.39 (27-40mm) Aortic Root: 44.35 mm Volumes Left Atrial Volume (Systole) Single Plane 4CH: 68.28 mL Single Plane 2CH: 43.56 mL Aortic Valve AoV Peak Rudy.: 2.21 m/s AO Peak Gr.: 19.47 mmHg LVOT Max P.13 mmHg LVOT Max V: 1.59 m/s JELENA Vmax: 3.80 cm2 [facility] [address] [place] [address] 2 D/M-MODE ECHOCARDIOGRAM Name: ROMAN BROWN Room #: 200-I [facility] IN [facility]#: [id number] Admission: 09/12/20 Attend Phys: Denys Diaz MD Discharge: Date of : 45 Report #: [id number] Mitral Valve MV Peak Gr.: 15.11 mmHg MV Mean Gr.: 2.54 mmHg E/A Ratio: 0.6 MV Decel. Time: 168.48 ms MV E Max Rudy.: 0.50 m/s MV A Rudy.: 0.80 m/s MV Max Rudy.: 6.98 m/s MV Mean Rudy.: 5.54 m/s MV VTI: 392.81 mm MV PHT: 48.86 ms Pulmonary Valve PV Peak Rudy.: 1.16 m/s PV Peak Gr.: 5.41 mmHg Pulmonary Vein P Vein S: 0.72 m/s P Vein A: 0.16 m/s P Vein D: 0.46 m/s P Vein A Dur.: 69.2 msec P Vein S/D Ratio: 1.57 Tricuspid Valve TR Peak Rudy.: 4.53 m/s RAP Estimate: 5.00 mmHg TR Peak Gr.: 82.09 mmHg Left Ventricle The left ventricle is normal size. Mild concentric left ventricular hypertrophy. The left ventricular systolic function is normal. The left ventricular ejection fraction is within the normal range. LVEF is 60-65%. Right Ventricle The right ventricle is normal size. The right ventricular systolic function is normal. Atria Left atrium is dilated. The right atrium size is normal. Aortic Valve Moderate aortic valve sclerosis. Mild aortic regurgitation. Cannot exclude aortic valve vegetation. There is no aortic valvular stenosis. Mitral Valve Mitral valve leaflets are calcified. Mild to moderate mitral regurgitation. No evidence of mitral valve stenosis. Tricuspid Valve [facility] [address] [place] [address] 2 D/M-MODE ECHOCARDIOGRAM Name: ROMAN BROWN Room #: 200-I [facility] IN [facility].#: [id number] Admission: 09/12/20 Attend Phys: Denys Diaz MD Discharge: Date of : 45 Report #: [id number] Tricuspid valve is not well visualized. Mild to moderate tricuspid regurgitation. Pulmonic Valve Pulmonic valve is not well visualized. Trace pulmonic regurgitation. Great Vessels The aortic root is normal in size. IVC is not well visualized. Pericardium No pericardial effusion. <Conclusion> The left ventricle is normal size. Mild concentric left ventricular hypertrophy. LVEF is 60-65%. Left atrium is dilated. Moderate aortic valve sclerosis. Cannot exclude aortic valve vegetation. Mild aortic regurgitation. Mitral valve leaflets are calcified. Mild to moderate mitral regurgitation. Tricuspid valve is not well visualized. Mild to moderate tricuspid regurgitation. Pulmonic valve is not well visualized. Trace pulmonic regurgitation. No pericardial effusion. <ELECTRONICALLY SIGNED> By: Ron Strauss MD 09/14/20 1423 1423 142 Ron Strauss MD /INF
[2020-09-14 15:37] VITALS: BP 157/50
[2020-09-14 20:45] VITALS: BP 132/37
[2020-09-15 04:00] VITALS: BP 149/47
[2020-09-15 05:35] LABS: CALCIUM 9.4 mg/dL (8.5-10.1); PHOSPHORUS 3.5 mg/dL (2.5-4.9); POTASSIUM 3.7 mmol/L (3.5-5.1)
[2020-09-15 05:45] LABS: CREATININE 3.2 mg/dL (0.7-1.3)
--- NOTE | 2020-09-15 07:24 | NUR ---
PATIENT SLEPT SOME OF THE NIGHT. ALERT TO SELF. PT DENIES MOST CARES AND MEDS. IMPULSIVE. WRIST RESTRAINTS PRESENT. INCONTINENT OF BOWEL; PT HAS PAUL. FALL PRECAUTIONS ARE IN PLACE. ON 2L O2; SATS 95-96. ASSESSMENTS CHARTED. CONTINUING TO ASSESS CLOSELY ACCORDING TO POC.
[2020-09-15 07:45] VITALS: BP 142/42
--- NOTE | 2020-09-15 10:35 | NUR ---
met with patient. He admits from [facility] term [facility] facility. He admits with sepsis, cellulitis. Sp with Melanie at facility who reports patient just transferred off medicare A therapy. Plan for [facility] to return to [facility] once stable. Sp with sister and reviewed role of casemgt. DC development planner to fax updated clinical to [facility].
[2020-09-15 11:19] VITALS: BP 152/45
--- NOTE | 2020-09-15 11:55 | NUR ---
FAXED CLINICAL UPDATE TO [facility] SPOKE WITH AYANA IN ADM SHE RECEIVE UPDATE.
[2020-09-15 16:38] VITALS: BP 166/56
[2020-09-15 19:27] VITALS: BP 153/67
[2020-09-16 04:21] VITALS: BP 145/59
[2020-09-16 04:52] LABS: ABSOLUTE NEUTROPHILS 16.5 thou/uL (1.4-8.2); BASOPHILS 0.3 % (0.0-2.0); EOSINOPHILS 0.7 % (0.0-3.0); HEMATOCRIT 33.4 % (42.0-52.0); HEMOGLOBIN 10.4 gm/dL (14.0-18.0); LYMPHOCYTES 2.7 % (24.0-44.0); MCH 32.4 pg (26.0-34.0); MCHC 31.2 g/dL (28.0-37.0); MCV 103.8 fL (80.0-100.0); MONOCYTES 8.5 % (1.0-8.0); POLYS 87.8 % (36.0-66.0); RBC 3.22 mil/uL (4.50-6.00); RDW 20.9 % (10.5-14.5); WBC 18.8 thou/uL (4.0-11.0)
[2020-09-16 05:06] LABS: PLATELET COUNT 133 thou/uL (150-400)
[2020-09-16 05:16] LABS: ALBUMIN 1.8 g/dL (3.4-5.0); CALCIUM 9.4 mg/dL (8.5-10.1); CREATININE 2.3 mg/dL (0.7-1.3); POTASSIUM 3.1 mmol/L (3.5-5.1); TOTAL PROTEIN 6.2 g/dL (6.4-8.2)
--- NOTE | 2020-09-16 07:37 | NUR ---
PT SLEPT THROUGH SOME OF THE NIGHT. ALERT TO SELF; PT WILL REFUSE CARES AND BE COMBATIVE AT TIMES. PT IN WRIST RESTRAINTS. SA/ST ON THE MONITOR. ON 2L. PAUL PRESENT. INCONTINENT OF BOWEL. MEDS GIVEN PER EMAR. ASSESSMENTS CHARTED. CONTINING TO ASSES CLOSELY ACCORDING TO POC.
[2020-09-16 07:51] VITALS: BP 156/44
[2020-09-16 11:44] VITALS: BP 133/38
--- NOTE | 2020-09-16 14:32 | HC ---
[facility] [place] [place] [place] [address] CONSULTATION Name: ROMAN BROWN Room #: 200-I ADM IN ..#: [id number] Admission: 09/12/20 Attend Phys: Denys Diaz MD Discharge: Date of : 45 Report #: [id number] THIS REPORT FOR: cc: Luann Engle MD, Ramilo MD Stephens, Thad A. MD ~ DATE OF SERVICE: 09/14/2020 WOUND CARE CONSULTATION PERSONAL PHYSICIAN: Dr. Engle. CHIEF COMPLAINT: Bilateral venous leg ulcers. HISTORY OF PRESENT ILLNESS: This is a 75-year-old white male who has been a patient of ours for several months, who has currently been a resident of [facility]. The patient was admitted to the hospital for abnormal lab values including an elevated BUN and creatinine. The patient himself is pleasantly confused and unable to give any history. We have been following him once again for the venous leg ulcers, which appear to be markedly improved from last hospitalization. The patient himself once again is unable to give any other history. The nursing staff is denying any other associated wounds. PAST MEDICAL HISTORY: Significant for chronic kidney disease, now with acute on chronic kidney disease. Diabetes mellitus type 2, chronic venous leg ulcers with venous insufficiency, hypertension, gastroesophageal reflux disease and dementia. CURRENT MEDICATIONS: Multiple, I reviewed the patient's medication list. DRUG ALLERGIES: None. SOCIAL HISTORY: The patient resides in [facility]. FAMILY HISTORY AND REVIEW OF SYSTEMS: Unobtainable because of the patient's dementia. PHYSICAL EXAMINATION: VITAL SIGNS: Stable. The patient is afebrile. GENERAL: This is an alert and oriented x 1 person, but not place or time. Confused black male who is chronically ill appearing. HEENT: Normocephalic, atraumatic. Mucous membranes are somewhat dry. Pupils are round. Sclerae white. NECK: Shows no JVD. [address] [address] CONSULTATION Name: ROMAN BROWN Room #: 200-I [facility] IN [facility].#: [id number] Admission: 09/12/20 Attend Phys: Denys Diaz MD Discharge: Date of : 45 Report #: [id number] LUNGS: Slight diminished breath sounds heard throughout. HEART: Regular. ABDOMEN: Soft and nontender. EXTREMITIES: The patient moves all extremities without difficulty. Bilateral lower extremities have 1+ edema. Distal neurovascular otherwise intact. The patient has multiple scattered superficial venous leg ulcerations, which did not appear to be infected. Sacrococcygeal region without open ulcerations or signs of pressure. NEUROLOGIC: Cranial nerves 2-12 grossly intact. Motor and sensory grossly intact. LABORATORY DATA: White count 29.7, hemoglobin 11.8, BUN 99, creatinine 3.2, albumin 2.0. IMPRESSION: 1. Chronic venous stasis ulcers, bilateral lower extremity without signs of infection. 2. Venous insufficiency with edema. 3. Generalized pruritic rash. 4. Acute on chronic kidney disease. 5. Hypertension. 6. Severe protein-calorie malnutrition with an albumin of 2.0. PLAN: At this time, we will place Xeroform over the bilateral lower extremities, cover this with an ABD, Kerlix and Carlo from toes to knee. We will place this daily and p.r.n. soilage. The patient to elevate his legs as much as possible. We will start triamcinolone cream to the generalized pruritic rash. Dermatology has been consulted as well. We will try to maximize the patient's oral protein supplementation as per renal restrictions. We will continue all other current medications. We will continue to follow the patient. <ELECTRONICALLY SIGNED> By: Derrick Rodriguez MD 09/16/20 1432 1313 1753 Derrick Rodriguez MD /nt
[2020-09-16 15:52] VITALS: BP 141/40
[2020-09-16 19:19] VITALS: BP 142/37
--- NOTE | 2020-09-16 20:03 | NUR ---
ASSUMED CARE OF PT AT SHIFT CHANGE. ASSESSMENTS CHARTED. MEDS GIVEN PER OCT. PT ALERT TO SELF. IN RESTRAINTS D/T IMPULSIVENESS. NO C/O PAIN. PT SLEPT MOST OF SHIFT. WILL CONTINUE TO MONITOR AND FOLLOW POC.
[2020-09-16 20:06] LABS: SYPHILIS AB Non Reactive (Non Reactive)
[2020-09-17 04:06] VITALS: BP 154/45
[2020-09-17 04:52] LABS: ALBUMIN 2.1 g/dL (3.4-5.0); CALCIUM 10.1 mg/dL (8.5-10.1); CREATININE 1.6 mg/dL (0.7-1.3); PHOSPHORUS 1.9 mg/dL (2.5-4.9); POTASSIUM 4.4 mmol/L (3.5-5.1)
--- NOTE | 2020-09-17 05:00 | NUR ---
CARE ASSUMED AT 1900. PT ORIENTED TO SELF. PT UNABLE TO VOICE NEED. PT APPEAR MORE LETHERGIC. VITALS STABLE DENIES ANY DISTRESS. WOUND TO THE BLE COMPLETED. PT INCONTIENT OF BOWEL. URINARY CATHETER INTACT. NO OTHER CONCERNS. WILL CONTINUE TO MONITOR.
[2020-09-17 07:20] VITALS: BP 147/39
--- NOTE | 2020-09-17 09:10 | NUR ---
PT. HAD A RUN OF 5 BEAT VTACH THIS AM WILL CALL SCOTTY LEMON AND LET HIM KNOW, CARDIOLOGY NOT CONSULTED OF YET. HE CONTINUES TO NOT ORIENT WELL OVERALL, AOX1. MECHANICAL SOFT DIET FED TO PATIENT AT THIS TIME. NO SWALLOW ISSUES OBSERVED.
[2020-09-17 09:45] LABS: HEMATOCRIT 34.2 % (42.0-52.0); HEMOGLOBIN 10.8 gm/dL (14.0-18.0); MCH 32.4 pg (26.0-34.0); MCHC 31.5 g/dL (28.0-37.0); PLATELET COUNT 121 thou/uL (150-400); RBC 3.32 mil/uL (4.50-6.00); RDW 20.1 % (10.5-14.5); WBC 14.4 thou/uL (4.0-11.0)
[2020-09-17 11:10] VITALS: BP 149/41
[2020-09-17 11:53] LABS: ABSOLUTE NEUTROPHILS 11.2 thou/uL (1.4-8.2); NUCLEATED RBCS 1 /100WBC; PLATELET ESTIMATE NORMAL
--- NOTE | 2020-09-17 11:54 | NUR ---
LONG CHAT WITH SISTER -MARICEL AND UPDATE PROVIDED. SHE IS AN AIDE AT THE FACILITY HE RESIDES IN SO VERY REALISITIC ABOUT HIS CONDITION OVERALL. FED HIM SOME EGGS THIS AM, WENT BACK IN AND HE HAD COUGHED THEM ALL UP SO GOING OT TALK TO SPEECH ABOUT SUCH TODAY.
[2020-09-17 15:50] VITALS: BP 155/50
--- NOTE | 2020-09-17 16:36 | NUR ---
COMPLETE BED CHANGE OF ALL LINENS. PT. HAD LARGE, SEMI LOOSE STOOL. LUIS FERNANDO CARE GIVEN. HE HAS ONE (QUARTER SIZED), SKIN TEAR ON EACH BUTTOCKS, MOVED HIM TO HIS RIGHT SIDE AND PASTE APPLIED TO EACH ONE FOR BARRIER. PT. IS NOW LOWER OQ=413, OCCASINAL PVC'S.
--- NOTE | 2020-09-17 17:34 | NUR ---
FAXED CLINICAL UPDATES TO [facility]. WILL CONFIRM THEY RECEIVED. [facility] P [phone]; FAX [phone]
[2020-09-17 20:10] VITALS: BP 141/41
[2020-09-18 03:19] LABS: HEMATOCRIT 40.4 % (42.0-52.0); HEMOGLOBIN 12.3 gm/dL (14.0-18.0); MCH 32.7 pg (26.0-34.0); MCHC 30.5 g/dL (28.0-37.0); MCV 107.1 fL (80.0-100.0); RBC 3.77 mil/uL (4.50-6.00); RDW 20.9 % (10.5-14.5); WBC 13.2 thou/uL (4.0-11.0)
[2020-09-18 03:32] LABS: CALCIUM 10.5 mg/dL (8.5-10.1); CREATININE 1.6 mg/dL (0.7-1.3)
--- NOTE | 2020-09-18 04:48 | NUR ---
PT SLEEPING UPON SHIFT ASSESSMENT. PT AWAKENS TO NAME. PT REPORTS PAIN 'ALL OVER', NOTED TO FALL BACK ASLEEP EASILY WITH NONPHARMALOGICAL INTERVENTIONS OF LOW ENVIRONMENTAL STIMULI. PT ASSESSED WITH FLACC OF 0 AT REST. PT DENIES SOB WHILE ON 2L O2 VIA NC. PT OBSERVED INTERMITTENTLY REMOVING O2, REFUSING REAPPLICATION. PT REFUSING HS MEDICATIONS. PT RESTING IN BED THROUGHOUT SHIFT, NOTED TO SHIFT INDEPENDENTLY WHILE IN BED. PT REMAINS NPO, INCONTINENT OF BOWEL, PAUL IN PLACE, FUNCTIONING PROPERLY. PT NOTED TO HAVE FREQUENT LOOSE STOOLS. DISCUSSED PLAN OF CARE WITH PT SISTER RAMOS, NO CONCERNS EXPRESSED. PT ENCOURAGED TO NOTIFY STAFF FOR ALL NEEDS, CALL LIGHT WITHIN REACH, BED ALARM ON, BED LOCKED IN LOWEST POSITION, ROOM REMAINS NEAR NURSES STATION, FREQUENT MONITORING WILL CONTINUE.
[2020-09-18 05:00] VITALS: BP 156/31
[2020-09-18 08:00] VITALS: BP 139/42
[2020-09-18 12:00] VITALS: BP 161/43
--- NOTE | 2020-09-18 13:00 | NUR ---
SPOKE WITH NURSING TODAY DURING PRIME TIME AND PT HAS DECLINED AND WILL NOT DC TO HOME WITH PHYSICIAN TO SPEAK WITH FAMILY REGARDING DC PLAN. NURSE TO NOTIFY ME IF ANY DC NEEDS NEEDED.
[2020-09-18 16:00] VITALS: BP 140/38
--- NOTE | 2020-09-18 17:53 | NUR ---
PT IS ALERT AND ORIENTED TO SELF, PLACE. PT IS EXTREMELY UNCOMFORTABLE, AND DISLIKES RECEIVING SOME CARES BECAUSE OF DISCOMFORT. DR DAS CONSULTED. SPEECH CONSULTED; SWALLOW STUDY CONDUCTED. PT DENIES PAIN UNLESS PROVIDING CARES. FALL PRECAUTIONS IN PLACE; PROFO BOOTS IN PLACE. PT SISTER CALLED. NO CONCERNS AT THIS TIME.
[2020-09-18 20:55] VITALS: BP 152/52
[2020-09-19 02:09] VITALS: BP 158/48
--- NOTE | 2020-09-19 02:47 | NUR ---
TRANSFER FROM . PT IS OX1. INCONTINENT OF STOOL, PAUL TO DD, IVF INTACT. NOW ON RA 98%. LUNGS WITH WHEEZES. PT IS RESISTIVE TO ADL CARES, NON VERBAL IN RESPONSE TO STAFF AT THIS TIME. PRAFO BOOTS ON. BED ALARM ON.
[2020-09-19 04:32] LABS: HEMATOCRIT 36.8 % (42.0-52.0); HEMOGLOBIN 11.4 gm/dL (14.0-18.0); MCH 32.4 pg (26.0-34.0); MCHC 30.9 g/dL (28.0-37.0); MCV 104.6 fL (80.0-100.0); RBC 3.52 mil/uL (4.50-6.00); RDW 21.5 % (10.5-14.5); WBC 13.9 thou/uL (4.0-11.0)
[2020-09-19 04:51] LABS: CALCIUM 9.6 mg/dL (8.5-10.1); CREATININE 1.5 mg/dL (0.7-1.3); MAGNESIUM 1.8 mg/dL (1.8-2.4)
[2020-09-19 04:53] LABS: POTASSIUM 2.7 mmol/L (3.5-5.1)
[2020-09-19 07:38] VITALS: BP 132/81
[2020-09-19 15:58] VITALS: BP 149/57
[2020-09-19 19:45] VITALS: BP 112/44
--- NOTE | 2020-09-20 02:43 | NUR ---
PT CARE ASSUMED WITH PT IN BED.PT IS A/O TO SELF.PT IS ON BEDREST.PT RESIST ADLS AND DOESNOT WANT TO BE CLEAN AFTER A BM OR BEING TOUCHED.WOUND DRESSING C/I/D.IV ACCESS ON RFA WITH D5W AT 200CC/HR.PT IS ACCUCHECK ACHS WITH SSI.PT IS INCONTINENT AND HAS A PAUL CATHETER IN PLACE.PT HAD 2 LARGE LOOSE STOOL .PT HAS REDNESS AROUND LUIS FERNANDO AREA.WILL CONTINUE TO MONITOR
[2020-09-20 08:40] VITALS: BP 135/48
--- NOTE | 2020-09-20 10:25 | NUR ---
Received awake on bed. Due medications given as prescribed, crushed and mixed with pudding. On telemetry; no complains and signs of chest pain, crushing sensation and heaviness. On room air. Vital signs stable. On carb controlled diet- tolerating well; no nausea, no vomiting and no abdominal pain noted. On blood sugar monitoring, taken and recoded accordingly; on nectar thick liquids- aspiration precaution observed; sitting upright when having meals. With linares in place- draining well; output measured and recorded accordingly. with bilateral LE dressing- in place; dressing to be changed today. With D5W at 200cc/hr,infusing well at L FA. Pt turned regularly, on low airloss mattress. Assisted in ADLS. Falls bundle in place. Pt seen and examined by Dr Owens this AM, will be contacting pt's relative re: updates. To continue monitoring patient.
--- NOTE | 2020-09-20 16:22 | NUR ---
Id indicated that pt is being treated with Zosyn and linezolid, is day #8 of antibiotics with plan at least 14 days, plan transition to p.o. regimen prior to discharge. Care team indicated that they had reached out to family regarding code status. Clinical update to be sent to [facility]. Plan is for pt to return to [facility] once medically stable. Cm to follow as indicated with dc planning.
[2020-09-20 16:25] VITALS: BP 116/37
--- NOTE | 2020-09-20 18:06 | PATH ---
[facility] [address] [place] [address] PATHOLOGY RPT PROCEDURE Name: MOE BROWN Room #: 452-P ADM IN M.R.#: [id number] Admission: 09/12/20 Date of : 45 Discharge: Report #: [id number] Path Case #: [id number] [facility] Accession Number: [id number] . 01 Material submitted: . thigh - LEFT ANTERIOR THIGH. Modifiers: left, anterior . 01 Clinical history: . CRITICAL ELEVATED LAB VALUES; BLE WOUNDS; SEPSIS; VALERIY; R/O PERFORATING COLLAGENOSIS VS DRUG ERUPTION . 02 Diagnosis: Skin, left anterior thigh, scoop shave biopsy: - Superficial perivascular inflammation, ulcerated (see comment). (SAS:colin; 09/20/2020) QMS 09/20/2020 [facility]1 Local . 02 Comment: The case was evaluated with additional deeper levels as well as with a PAS stain for fungus, performed with an appropriate positive control, which is negative. . Despite these deeper levels, there is no evidence of a perforating collagenosis. Sections show epidermal ulceration with underlying dermal inflammation. A naked hair shaft is also seen secondary to the effects of the ulcer. There is no evidence of a vasculitis in the material available for review. As only the superficial dermis is available for review, an underlying vascular occlusive process cannot be ruled out. Due to the lack of epidermal changes and the lack of significant dermal eosinophils, a drug eruption is not favored. This may represent traumatic ulcers versus an ulcerated chronic eczematous dermatitis. Please correlate clinically. SAS:colin; 09/20/2020) . Special stain: PAS fungus: Negative . 02 Electronically signed: . Priti Aguilar MD, Pathologist NPI- [id number] . 01 Gross description: . Received in formalin labeled "Moe Brown, left anterior thigh" is a skin shave biopsy measuring 1.4 x 1.1 x 0.2 cm. The skin surface displays nodular, busby-brown surface. The margin is inked and the specimen is trisected and submitted in A1. ([facility]; 09/15/2020) GZA/GZA 09/20/2020 [facility] Local . 02 Pathologist provided ICD-10: [address] [address] PATHOLOGY RPT PROCEDURE Name: MOE BROWN Room #: 452-P ADM IN M.R.#: [id number] Admission: 09/12/20 Date of : 45 Discharge: Report #: [id number] Path Case #: [id number] L98.9, L97.129 . 02 CPT . 672920, [id number] Specimen Comment: A courtesy copy of this report has been sent to [phone], [phone] Specimen Comment: [id number] Specimen Comment: Report sent to / DR BARKLEY Performed at: [address], [place] [id number] MD Ashok Machado MD Phone: [phone] Performed at: [facility] [place] [address] [place] [id number] MD Priti Aguilar MD Phone: [phone]
[2020-09-20 19:58] VITALS: BP 126/53
--- NOTE | 2020-09-21 02:30 | NUR ---
PT CARE ASSUMED WITH PT IN BED.PT IS ALERT AND ORIENTED TO SLEF AND VERY CONFUSE.PT WANTED TO GET OUT OF BED SAYING HE WANTED TO USE THE RESTROOM.PT IS INCONTINENT TO BOWEL AND HAS A PAUL CATHETER IN PLACE.PT HAD DIARRHEA.PT HAS REDNESS ON BOTTOM AND STAFF APPLIED ZGUARD AFTER CLEANING.PT RESISTING ADLS.IV ACCESS ON RT FA WITH D5W AT 200CC/HR.PT WOUND DRESSING D/C/I.WILL CONTINUE TO MONITOR
[2020-09-21 05:50] LABS: ALBUMIN 1.7 g/dL (3.4-5.0); CALCIUM 8.1 mg/dL (8.5-10.1); CREATININE 1.3 mg/dL (0.7-1.3); PHOSPHORUS 1.3 mg/dL (2.5-4.9)
[2020-09-21 05:57] LABS: POTASSIUM 2.8 mmol/L (3.5-5.1)
[2020-09-21 07:18] VITALS: BP 127/74
--- NOTE | 2020-09-21 11:11 | NUR ---
Received awake on bed. Due medications given as prescribed, crushed and mixed with apple sauce. On telemetry; no complains and signs of chest pain. crushing sensation and heaviness. Assisted in ADLs. On room air. Vital signs stable. On carb controlled diet- assisted in ADLs, encouraged and assisted in eating and drinking. On nectar thick fluids, on aspiration precaution- kept upright during feeding. With linares in place- draining well; output measured and recorded accordingly. Incontinent of bowel- checked frequently and changed as needed. With D5W at 200cc/hr, infusing well at R FA; rate reduced to 125cc/hr. Falls bundle in place. With bilateral leg dressing in place- C/D/I- to be changed today. No nausea, no vomiting and no abdominal pain noted. Pt turned on his sides regularly. With prafo boots in place. On low airloss mattress. Pt with critical low K this AM 2.8- Dr Diaz informed; ongoing PO correction- Dr Diaz said to do additional 40meq PO correction- no repeat labs required. To continue monitoring patient.
--- NOTE | 2020-09-21 14:30 | NUR ---
CARE TEAM INDICATED THAT PT HAD A CRITICAL POTASSIUM THIS AM AND THAT THEY ARE WORKING TO CORRECT THAT PRIOR TO DISCHARGE. ID INDICATED THAT PT IS TO TRANSITION TO [place] PRIOR TO DICHARGE. CLINICAL UPDATES SENT TO THE FACILITY. CM TO FOLLOW UP WITH PT'S SISTER. ANTIAPTE POSSIBLE DC BACK TO [facility] TOMORROW. CM TO FOLLOW INDIATED WITH DC PLANNING.
--- NOTE | 2020-09-21 14:41 | NUR ---
FAXED CLINICAL UDATE TO [facility] RECEIVED CONFIRMATION LEFT MSG WITH ADM.
[2020-09-21 16:03] VITALS: BP 133/43
[2020-09-21 19:40] VITALS: BP 115/38
--- NOTE | 2020-09-22 02:52 | NUR ---
ASSUMED CARE OF PT AT 1900. PT IS A/O X1 AND IS ON CURRENT BEDREST. DRSGS TO LE ARE C/D/I. ROOM AIR. AFIB ON THE MONITOR. BS LOW. PRN ORDERS GIVEN. MEAL MILLER NOTIFIED BY CHARGE NURSE. ORDERS GIVEN TO CHANGE FLUIDS TO D10. LAST KNOWN SUGAR REPORTED BY LAB WAS WNL. AT THIS TIME, PT IS LYING IN HIS BED AND APPEARS TO BE SLEEPING. X1 EPISODE OF DIARRHEA. COMBATIVE WITH CARES AND REFUSED ALL PO MEDICATIONS. FALL PRECAUTIONS IMPLEMENTED, CALL LIGHT IS WITHIN REACH. WILL CONTINUE TO MONITOR.
[2020-09-22 05:52] LABS: ALBUMIN 1.9 g/dL (3.4-5.0); CALCIUM 8.9 mg/dL (8.5-10.1); CREATININE 1.4 mg/dL (0.7-1.3); PHOSPHORUS 1.2 mg/dL (2.5-4.9)
[2020-09-22 06:07] LABS: POTASSIUM 4.2 mmol/L (3.5-5.1)
[2020-09-22 07:57] VITALS: BP 123/43
[2020-09-22] MEDS ORDERED: LINEZOLID600 MG PO (10:38)
[2020-09-22] MEDS ORDERED: MEGESTROL400 MG/11 PO (10:48)
[2020-09-22 12:53] LABS: HEMATOCRIT 33.9 % (42.0-52.0); HEMOGLOBIN 10.8 gm/dL (14.0-18.0); MCH 32.8 pg (26.0-34.0); MCHC 31.7 g/dL (28.0-37.0); MCV 103.3 fL (80.0-100.0); RBC 3.28 mil/uL (4.50-6.00); RDW 20.5 % (10.5-14.5); WBC 12.1 thou/uL (4.0-11.0)
--- NOTE | 2020-09-22 13:18 | NUR ---
ASSUMED CARE OF PATIENT AT SHIFT CHANGE. ASSESSMENT CHARTED. ATTEMPTED TO ADMINISTER MEDICATIONS BUT PATIENT REFUSED. VITAL SIGNS REMAIN STABLE FOR BASELINE. PATIENT IS ALERT TO SELF AND RESPONDS TO QUESTIONS; IS ABLE TO VOICE NEEDS BUT IS VERY SLEEPY. FSBS HX. REPORTED UNSTABLE. AC LUNCH FSBS CL OF 38. PROVIDER NOTIFIED. LAB DRAW WAS ORDERED. [place]ELD ADMINISTERED & D10 REMAINS INFUSING AT 50ML/HR. PATIENT REMAINS SLEEPY THROUGHOUT SHIFT AND REFUSES ALL CARES. PATIENT IS ALSO COMBAIVE DURING CHANGES. PRAFO BOOTS IN PLACE. PATIENT ON LOW AIRLOSS PUMP AND OFFERED REPOSITIONING Q2HRS (REFUSES). WILL CONTINUE TO MONITOR Pt BLOOD SUGAR AND AWAIT ANY NEW ORDERS
--- NOTE | 2020-09-22 14:48 | NUR ---
CARE TEAM HAD INDICATED THAT PT IS MEDICALLY STABLE TO DISCHARGE BACK TO [facility] THIS DAY. CM REACHED OUT TO DON. PT WAS THEN HAVING ISSUES WITH LOVE BLOOD SUGAR AND DISCHARGE WAS CANCLED. CM NOTIFIED PAIGE HOWE AT FACILITY AND LEFT A VM WITH PT'S SISTER. CM TO FOLLOW INDICATED WITH DC PLANNING.
[2020-09-22 16:00] VITALS: BP 140/36
[2020-09-22 19:16] VITALS: BP 131/39
--- NOTE | 2020-09-23 05:59 | NUR ---
ASSUMED PT'S CARE THIS PM SHIFT. ORIENTED TO SELF. CONFUSED. PT WAS COOPERATIVE WITH CARE THIS SHIFT. TOOK MEDS CRUSHED IN APPLESAUCE WITH AN EXTRA SUGAR SWEETNER. PT SLEPT OFF AND ON. DID TAKE OCCASIONAL SIPS OF SPRITE. FALL PRECAUTION IN PLACE. PAUL FOR VOIDING. WILL CONTINUE TO MONITOR.
[2020-09-23 07:15] VITALS: BP 144/49
[2020-09-23 16:04] VITALS: BP 137/44
--- NOTE | 2020-09-23 16:04 | NUR ---
CARE TEAM INDICATED THAT PT IS MEDICALLY STABLE TO DC BACK TO [facility] THIS DAY. [facility] ARRANGED FOR [phone]. CHART COPY ORDERED. ORDERS FAXED. CM NOTIFIED PT'S SISTER. SHE IS AWARE AND AGREEABLE. KC ARRIVED AT [phone]. NURSE GIVEN NUMBER FOR REPORT. NO OTHER CM INTERVENTION INDICATED. CASE CLOSED.
--- NOTE | 2020-09-23 16:06 | NUR ---
ASSUMED CARE OF PATIENT AT 0700. ASSESSMENT CHARTED. MEDS GIVEN PER MAR IN APPLESAUCE. VSS. PATIENT IS MORE ALERT THIS DAY AND GETS UP TO CHAIR. STILL HAVING POOR APPETITE BUT EATING SOME. HR SWITCHED FROM AFIB TO SR THIS AM. PATIENT ENCOURAGED TO EAT D/T LOW BLOOD SUGARS. STABLE THIS SHIFT. PATIENT CLEARED TO D/C BACK TO FACILITY. VOICED NO NEEDS AND DENIED PAIN. LEFT [facility] TRANSPORT AT 1615. REPORT CALLED TO CHRISS ONEIL
== END 2020-09-23 16:15 | DRG 871 ==
LOC: ER 21:02 → EROBS 23:35 → 2N 23:35 → EROBS 09-13 07:48 → 2N 09-13 18:01 → 3W 09-19 02:07 → 4W 09-19 02:09
PROVIDERS: Hospitalist; Internal Medicine; Internal Medicine Nephrology; Nurse Practitioner Family; Physician Assistant; Specialist; ADMIT Hospitalist; ATTEND Hospitalist
PROC: 0HBJXZX Excision of Left Upper Leg Skin, External Approach, Diagnostic (ICD-10-PCS; principal; 2020-09-14)
DX: A41.02 Sepsis due to Methicillin resistant Staphylococcus aureus (principal); L89.323 Pressure ulcer of left buttock, stage 3; L89.313 Pressure ulcer of right buttock, stage 3; G92 Toxic encephalopathy; E43 Unspecified severe protein-calorie malnutrition; J18.9 Pneumonia, unspecified organism; J96.90 Respiratory failure, unspecified, unspecified whether with hypoxia or hypercapnia; N39.0 Urinary tract infection, site not specified; N17.9 Acute kidney failure, unspecified; L03.116 Cellulitis of left lower limb; L03.115 Cellulitis of right lower limb; N18.4 Chronic kidney disease, stage 4 (severe); I42.9 Cardiomyopathy, unspecified; E87.0 Hyperosmolality and hypernatremia; S81.802A Unspecified open wound, left lower leg, initial encounter; N40.1 Benign prostatic hyperplasia with lower urinary tract symptoms; S81.801A Unspecified open wound, right lower leg, initial encounter; I25.10 Atherosclerotic heart disease of native coronary artery without angina pectoris; E78.5 Hyperlipidemia, unspecified; K21.9 Gastro-esophageal reflux disease without esophagitis; M10.9 Gout, unspecified; M19.90 Unspecified osteoarthritis, unspecified site; F03.90 Unspecified dementia, unspecified severity, without behavioral disturbance, psychotic disturbance, mood disturbance, and anxiety; I87.2 Venous insufficiency (chronic) (peripheral); E11.40 Type 2 diabetes mellitus with diabetic neuropathy, unspecified; B96.20 Unspecified Escherichia coli [E. coli] as the cause of diseases classified elsewhere; I12.9 Hypertensive chronic kidney disease with stage 1 through stage 4 chronic kidney disease, or unspecified chronic kidney disease; Z20.822 Contact with and (suspected) exposure to COVID-19; E11.22 Type 2 diabetes mellitus with diabetic chronic kidney disease; R63.4 Abnormal weight loss; E86.0 Dehydration; N13.9 Obstructive and reflux uropathy, unspecified; Z82.49 Family history of ischemic heart disease and other diseases of the circulatory system; Z80.8 Family history of malignant neoplasm of other organs or systems; Z68.28 Body mass index [BMI] 28.0-28.9, adult; Z79.899 Other long term (current) drug therapy
CPT/HCPCS: 10045; 10081